=== PATIENT | female | born 1970 | race Caucasian/White ===

== ENCOUNTER → 2017-01-18 | Outpatient (CLI) | payer BC ==
[~2017-01-18] MED LIST: EFF50 PO
[2017-01-18 17:03] LABS: BASO % 0.3 %; BASO ABS # 0.02 K/uL (0-0.2); COMPLETE YES; EOS % 1.3 %; IG% 0.2 %; LYMPH % 21.2 %; LYMPH ABS # 1.31 K/uL (1.2-3.4); MEAN CELL VOLUME 86.2 fL (80-100); MEAN CORPUSCULAR HEMOGLOBIN 29.9 pg (25-34); MEAN CORPUSCULAR HGB CONC 34.7 g/dl (32-36); MEAN PLATELET VOLUME 9.8 fL (7.4-10.4); MONO % 8.6 %; NEUT % 68.4 %; PLATELET COUNT 225 K/uL (130-400); RED BLOOD COUNT 4.41 M/uL (4.2-5.4); WHITE BLOOD COUNT 6.18 K/uL (4.8-10.8)
[2017-01-18 17:14] LABS: ALT/SGPT 22 U/L (12-78); BLOOD UREA NITROGEN 11 mg/dl (7-18); BUN/CREATININE RATIO 13.1 (10-20); CALCIUM 8.8 mg/dl (8.5-10.1); CARBON DIOXIDE 23 mmol/L (21-32); CHLORIDE 107 mmol/L (98-107); CREATININE 0.83 mg/dl (0.60-1.20); GLUCOSE 96 mg/dl (70-99); MAGNESIUM 1.9 mg/dl (1.8-2.4); POTASSIUM 3.9 mmol/L (3.5-5.1); SODIUM 140 mmol/L (136-145)
[2017-01-18 17:24] LABS: ALB/GLOB RATIO 1.1 (0.9-2); ALKALINE PHOSPHATASE 49 U/L (45-117); AST/SGOT 20 U/L (15-37)
== END | disposition home or self-care (01) ==
LOC: C.LABBC 14:31
PROVIDERS: ATTEND Nurse Practitioner Family
DX: E55.9 Vitamin D deficiency, unspecified (principal); R53.83 Other fatigue

== ENCOUNTER → 2017-05-24 | Outpatient (CLI) | payer BC | END | disposition home or self-care (01) | LOC: C.LAB1850 10:27 | PROVIDERS: ATTEND Nurse Practitioner Family | DX: E55.9 Vitamin D deficiency, unspecified (principal); R53.83 Other fatigue; Z78.9 Other specified health status ==

== ENCOUNTER → 2017-08-24 | Outpatient (CLI) | payer BC | END | disposition home or self-care (01) | LOC: C.LAB1850 09:48 | PROVIDERS: ATTEND Obstetrics & Gynecology | DX: Z01.419 Encounter for gynecological examination (general) (routine) without abnormal findings (principal); R53.83 Other fatigue ==

== ENCOUNTER → 2017-08-24 | Outpatient (CLI) | payer BC | END | disposition home or self-care (01) | LOC: C.PAPS 13:52 | PROVIDERS: ATTEND Obstetrics & Gynecology | DX: Z01.419 Encounter for gynecological examination (general) (routine) without abnormal findings (principal); R53.83 Other fatigue ==

== ENCOUNTER → 2017-10-31 | Outpatient (CLI) | payer BC ==
[2017-10-31 19:17] LABS: BASO % 0.6 %; BASO ABS # 0.05 K/uL (0-0.2); COMPLETE YES; EOS % 1.7 %; HEMATOCRIT 39.9 % (37-47); IG% 0.4 %; LYMPH % 26.3 %; LYMPH ABS # 2.17 K/uL (1.2-3.4); MEAN CELL VOLUME 88.9 fL (80-100); MEAN CORPUSCULAR HEMOGLOBIN 30.3 pg (25-34); MEAN CORPUSCULAR HGB CONC 34.1 g/dl (32-36); MEAN PLATELET VOLUME 9.4 fL (7.4-10.4); MONO % 9.7 %; NEUT % 61.3 %; PLATELET COUNT 202 K/uL (130-400); RED BLOOD COUNT 4.49 M/uL (4.2-5.4); WHITE BLOOD COUNT 8.24 K/uL (4.8-10.8)
[2017-10-31 19:48] LABS: ALT/SGPT 23 U/L (12-78); AST/SGOT 17 U/L (15-37); BLOOD UREA NITROGEN 12 mg/dl (7-18); BUN/CREATININE RATIO 16.7 (10-20); CALCIUM 8.7 mg/dl (8.5-10.1); CARBON DIOXIDE 24 mmol/L (21-32); CHLORIDE 108 mmol/L (98-107); CREATININE 0.71 mg/dl (0.60-1.20); GLUCOSE 84 mg/dl (70-99); SODIUM 138 mmol/L (136-145)
[2017-10-31 19:59] LABS: ALKALINE PHOSPHATASE 43 U/L (45-117)
== END | disposition home or self-care (01) ==
LOC: C.LAB 18:57
PROVIDERS: ATTEND Nurse Practitioner Family
DX: E55.9 Vitamin D deficiency, unspecified (principal); R53.83 Other fatigue

== ENCOUNTER → 2017-12-29 | Outpatient (CLI) | payer BC ==
--- NOTE | 2017-12-29 15:00 | MAMMOGRAPHY REPORT ---
BILATERAL DIGITAL SCREENING MAMMOGRAM TOMOSYNTHESIS WITH CAD: 12/29/2017 CLINICAL HISTORY: Routine screening. The patient reported to the technologist a left breast lump. TECHNIQUE: Breast tomosynthesis in addition to standard 2D mammography was performed. Current study was also evaluated with a Computer Aided Detection (CAD) system. COMPARISON: Comparison is made to exams dated: 10/15/2012 ultrasound, 04/10/2012 mammogram, 08/30/2011 ultrasound, and 08/30/2011 mammogram - [facility]. BREAST COMPOSITION: The tissue of both breasts is heterogeneously dense, which may obscure small mas ses. FINDINGS: A triangle marker ramirez the site of the palpable lump in the left upper outer quadrant. T here are no suspicious masses, calcifications, or areas of architectural distortion noted in either b reast. There has been no significant interval change compared to prior exams. IMPRESSION: ACR BI-RADS CATEGORY 0: INCOMPLETE EVALUATION: NEED ADDITIONAL IMAGING EVALUATION No mammographic evidence of malignancy in either breast. However, the patient reported to the techno logist that she has a left breast lump. Therefore, recommend additional imaging evaluation with targ eted ultrasound in order to have a complete workup. The patient will be called to schedule an appointment. Approximately 10% of breast cancers are not detected with mammography. A negative mammographic report should not delay biopsy if a clinically suggestive mass is present. Angelia White M.D. ah/:12/29/2017 07:55:08 [employer] Solder Leveler: Sandrine PERDOMO)(M), [facility] letter sent: Addl Imaging 0 BI-RADS Code: ACR BI-RADS Category 0: Incomplete Evaluation: Need Additional Imaging Evaluation
== END | disposition home or self-care (01) ==
LOC: C.MAMM 07:34
PROVIDERS: ATTEND Obstetrics & Gynecology
DX: Z12.31 Encounter for screening mammogram for malignant neoplasm of breast (principal); R92.8 Other abnormal and inconclusive findings on diagnostic imaging of breast

== ENCOUNTER → 2017-12-29 | Outpatient (CLI) | payer BC ==
--- NOTE | 2017-12-29 16:17 | DIAGNOSTIC IMAGING REPORT ---
THYROID ULTRASOUND CLINICAL HISTORY: Fatigue. COMPARISON STUDY: Thyroid ultrasound June 17, 2015. TECHNIQUE: Sonography of the thyroid gland was performed. FINDINGS: The right thyroid lobe measures 4.7 x 1.6 x 1.5 cm and the left thyroid lobe measures 3 x 0.9 x 1.2 cm. No thyroid nodules are present. Isthmus measures 0.2 cm in thickness. The adjacent soft tissues are unremarkable. IMPRESSION: Unremarkable thyroid ultrasound. Electronically signed by: Benny Tovar M.D. 12/29/2017 4:15 PM Dictated Date/Time: 12/29/2017 4:14 PM
== END | disposition home or self-care (01) ==
LOC: C.ULTR 15:24
PROVIDERS: ATTEND Nurse Practitioner Family
DX: R53.83 Other fatigue (principal)

== ENCOUNTER → 2018-01-12 | Outpatient (CLI) | payer BC ==
--- NOTE | 2018-01-12 13:36 | MAMMOGRAPHY REPORT ---
ULTRASOUND OF LEFT BREAST: 01/12/2018 CLINICAL HISTORY: The patient reports a palpable lump in her left breast which fluctuates in size and has been present for months. She has some associated intermittent tenderness. No abnormality was s een on a recent screening mammogram. COMPARISON: Comparison is made to exams dated: 12/29/2017 mammogram, 10/15/2012 mammogram, 10/15/2012 u ltrasound, 04/10/2012 mammogram, and 08/30/2011 ultrasound - [facility]. TECHNIQUE: Real-time targeted ultrasound of the left breast was performed. FINDINGS: Real-time, high-resolution targeted ultrasound was performed of the area of the palpable lump pointed out by the patient, in the left breast at approximately 1:00, 3 cm from the nipple. At the site of the palpable lump there is sonographically normal tissue without evidence of a suspicious mass or oth er suspicious sonographic abnormality. Incidentally noted in the left 1:00 breast, approximately 5 c m from the nipple, is a morphologically normal intramammary lymph node which measures 7 x 3 x 6 mm, w hich does not appear significantly changed compared to the 2011 ultrasound exam. IMPRESSION: ACR BI-RADS CATEGORY 2: BENIGN No suspicious sonographic abnormality at the site of the palpable left breast lump pointed out by the patient. There is no sonographic evidence of malignancy. Recommend clinical follow-up for the palp able left breast lump, and recommend routine bilateral screening mammograms in one year. The patient was verbally notified of the results. Angelia White M.D. ah/:01/12/2018 11:34:11 Surgical Services Coordinator: Apple TRIPP(Erica)(Mark), [facility] letter sent: Normal /2 BI-RADS Code: ACR BI-RADS Category 2: Benign
== END | disposition home or self-care (01) ==
LOC: C.MAMM 11:10
PROVIDERS: ATTEND Obstetrics & Gynecology
DX: R92.8 Other abnormal and inconclusive findings on diagnostic imaging of breast (principal); N63.20 Unspecified lump in the left breast, unspecified quadrant

== ENCOUNTER → 2018-01-16 | Outpatient (CLI) | payer BC ==
[2018-01-19 16:33] LABS: MICROSOMAL AB 3 IU/ML (<9); TSI <89 % baseline (<140)
== END | disposition home or self-care (01) ==
LOC: C.LAB 15:30
PROVIDERS: ATTEND Nurse Practitioner Family
DX: E55.9 Vitamin D deficiency, unspecified (principal); R53.83 Other fatigue; K90.9 Intestinal malabsorption, unspecified

== ENCOUNTER → 2018-02-23 | Day surgery (SDC) | payer BC ==
[2018-02-13 13:36] VITALS: Ht 168.9 cm; Wt 74.5 kg
[~2018-02-23] VITALS: Ht 168.9 cm; Wt 74.5 kg
[~2018-02-23] MED LIST changes: +AMPH1TAB58 PO; -EFF50 PO; +ESCI10TA17 PO; +LIDOCAINE HCL 2% 2 ML VIAL (20MG/ML) ONE; +PROPOFOL IV EMULSION 10 MG/ML 20 ML VIAL IV ONE; +SODIUM CHLORIDE 0.9% 500ML 500 ML IV ONE; +ZOLP5TAB PO
--- NOTE | 2018-02-23 12:57 | Endo History and Physical ---
History & Physical Date of Service: Feb 23, 2018. Chief Complaint: BLOATING, MALABSORPTION, CHANGE IN BOWEL HABITS Referring Physician: AISHA JACOBO History of Present Illness 47 yo CF who presents for EGD and Colonoscopy secondary to bloating, malabsorption, and change in bowel habits. Past Surgical History Hx Cardiac Surgery: No Hx Internal Defibrillator: No Hx Pacemaker: No Hx Abdominal Surgery: No Hx of Implantable Prosthesis: No Hx Post-Op Nausea and Vomiting: No Hx Cancer Surgery: No Hx Thoracic Surgery: No Hx Orthopedic: No Hx Urinary Tract Surgery: No Family History None Social History Smoking Status: Never Smoker Hx Substance Use: No Hx Alcohol Use: Yes (OCCASIONALLY) Allergies Coded Allergies: Pseudoephedrine (Unverified Allergy, Mild, PASSED OUT , 02/23/18) Current Medications Reported Home Medications Medications Dose Route/Sig Max Daily Dose Days Date Category Adderall 5MG (Amphetamine-Dextroamphetamine 5MG) 1 Tab Tab 5 Mg PO DAILY PRN 02/16/18 Reported Ambien (Zolpidem Tartrate) 5 Mg Tab 5 Mg PO HS 02/13/18 Reported Lexapro (Escitalopram Oxalate) 10 Mg Tab 10 Mg PO HS 02/13/18 Reported Vital Signs Weight (Kilograms): 74.55 Height (Feet): 5 Height (Inches): 6.5 Physical Exam General Appearance: WD/WN, no apparent distress Respiratory/Chest: Auscultation: breath sounds normal Cardiovascular: Heart Auscultation: RRR Abdomen: Bowel Sounds: normal Inspection & Palpation: soft, non-distended, no tenderness, guarding & rebound Assessment and Plan Assessment: 47 yo CF who presents for EGD and Colonoscopy secondary to bloating, malabsorption, and change in bowel habits. Plan: Proceed with EGD and colonoscopy.
--- NOTE | 2018-02-23 13:59 | Discharge Instructions ---
Endoscopy Patient Instructions Date / Procedure(s) Performed Feb 23, 2018. Colonoscopy, EGD Allergy Information Coded Allergies: Pseudoephedrine (Unverified Allergy, Mild, PASSED OUT , 02/23/18) Discharge Date / Findings Feb 23, 2018. EGD: Gastric antrum biopsies, Duodenal biopsies Colonoscopy: Colon polyp, Random colon biopsies, Internal hemorrhoids Medication Instructions OK to resume all medications today as prescribed Reported Home Medications Medications Dose Route/Sig Max Daily Dose Days Date Category Adderall 5MG (Amphetamine-Dextroamphetamine 5MG) 1 Tab Tab 5 Mg PO DAILY PRN 02/16/18 Reported Ambien (Zolpidem Tartrate) 5 Mg Tab 5 Mg PO HS 02/13/18 Reported Lexapro (Escitalopram Oxalate) 10 Mg Tab 10 Mg PO HS 02/13/18 Reported Provider Instructions Activity Restrictions - No exercising or heavy lifting for 24 hours. - Do not drink alcohol the day of the procedure. - Do not drive a car or operate machinery until the day after the procedure. - Do not make any important decisions or sign important papers in 24 hours after the procedure. Following Day: - Return to full activity which may include returning to work/school. Diet Start your diet with liquids and light foods (jello, soup, juice, toast). Then eat your usual diet if not nauseated. Treatment For Common After Affects For mild abdominal pain, bloating, or excessive gas: - Rest - Eat lightly - Lie on right side Follow-Up Information Follow-up with AISHA JACOBO as scheduled Anesthesia Information What You Should Know You have had a procedure that required some medicine to reduce anxiety and discomfort. This treatment is called moderate sedation. After receiving the treatment, you may be sleepy, but you will be able to breathe on your own. The effects of the treatment may last for several hours. Follow these instructions along with Activity/Diet recommendations noted above: * Do NOT do anything where dizziness or clumsiness would be dangerous. * Rest quietly at home today, then you can be up and about tomorrow. * Have a responsible person stay with you the rest of today. * You may have had an I.V. today. If so, you may take the dressing off later today. Recommendations Call your doctor if: * Trouble breathing * Continuous vomiting for more than 24 hours * Temperature above 101 degrees * Severe abdominal pain or bloating * Pain not relieved by pain medicine ordered * There is increased drainage or redness from any incision * A large amount of rectal bleeding greater than 2-3 tablespoons. (If you had a polyp/s removed or have hemorrhoids, a small amount of blood - from the rectum is to be expected.) * You have any unanswered questions or concerns. IN THE EVENT OF A SERIOUS EMERGENCY, GO TO THE NEAREST EMERGENCY ROOM Your discharge instructions were prepared by provider Jamison Lewis. Patient Instructions Signature Page Caren Guerrero Patient (or Guardian) Signature/Date: I have read and understand the instructions given to me by my caregivers. Caregiver/RN/Doctor Signature/Date: The above-named patient and/or guardian has received patient instructions on this date. + Original Patient Signature Page (only) stays with chart. Please make copy for patient.
--- NOTE | 2018-02-23 14:13 | GI REPORT ---
Procedure Date: 02/23/2018 1:31 PM Procedure: Colonoscopy Indications: Change in bowel habits Medicines: Monitored Anesthesia Care Complications: No immediate complications. Estimated Blood Loss: Estimated blood loss: none. Procedure: Pre-Anesthesia Assessment: - Prior to the procedure, a History and Physical was performed, and patient medications and allergies were reviewed. The patient's tolerance of previous anesthesia was also reviewed. The risks and benefits of the procedure and the sedation options and risks were discussed with the patient. All questions were answered, and informed consent was obtained. Prior Anticoagulants: The patient has taken no previous anticoagulant or antiplatelet agents. ASA Grade Assessment: II - A patient with mild systemic disease. After reviewing the risks and benefits, the patient was deemed in satisfactory condition to undergo the procedure. After I obtained informed consent, the scope was passed under direct vision. Throughout the procedure, the patient's blood pressure, pulse, and oxygen saturations were monitored continuously. The scope was introduced through the anus and advanced to the terminal ileum. The colonoscopy was performed without difficulty. The patient tolerated the procedure well. The quality of the bowel preparation was good. The terminal ileum, ileocecal valve, appendiceal orifice, and rectum were photographed. Findings: The perianal and digital rectal examinations were normal. A 4 mm polyp was found in the sigmoid colon. The polyp was sessile. The polyp was removed with a cold snare. Resection and retrieval were complete. Non-bleeding internal hemorrhoids were found during retroflexion. The hemorrhoids were small. Several random biopsies were obtained with cold forceps for histology in the entire colon. Impression: - One 4 mm polyp in the sigmoid colon, removed with a cold snare. Resected and retrieved. - Non-bleeding internal hemorrhoids. - Several random biopsies were obtained in the entire colon. Recommendation: - Resume previous diet. - Continue present medications. - Repeat colonoscopy for surveillance based on pathology results. - Return to primary care physician as previously scheduled. Jamison Lewis, DO 02/23/2018 2:13:24 PM This report has been signed electronically. Note Initiated On: 02/23/2018 1:31 PM I attest to the content of the Intraoperative Record and orders documented therein, exceptions below
--- NOTE | 2018-02-23 14:14 | GI REPORT ---
Procedure Date: 02/23/2018 1:00 PM Procedure: Upper GI endoscopy Indications: Abdominal bloating Medicines: Monitored Anesthesia Care Complications: No immediate complications. Estimated Blood Loss: Estimated blood loss: none. Procedure: Pre-Anesthesia Assessment: - Prior to the procedure, a History and Physical was performed, and patient medications and allergies were reviewed. The patient's tolerance of previous anesthesia was also reviewed. The risks and benefits of the procedure and the sedation options and risks were discussed with the patient. All questions were answered, and informed consent was obtained. Prior Anticoagulants: The patient has taken no previous anticoagulant or antiplatelet agents. ASA Grade Assessment: II - A patient with mild systemic disease. After reviewing the risks and benefits, the patient was deemed in satisfactory condition to undergo the procedure. After obtaining informed consent, the endoscope was passed under direct vision. Throughout the procedure, the patient's blood pressure, pulse, and oxygen saturations were monitored continuously. The scope was introduced through the mouth, and advanced to the second part of duodenum. The upper GI endoscopy was accomplished without difficulty. The patient tolerated the procedure well. Findings: The esophagus was normal. The entire examined stomach was normal. Biopsies were taken with a cold forceps for Helicobacter pylori testing. The examined duodenum was normal. Biopsies for histology were taken with a cold forceps for evaluation of celiac disease. Impression: - Normal esophagus. - Normal stomach. Biopsied. - Normal examined duodenum. Biopsied. Recommendation: - Resume previous diet. - Continue present medications. - Await pathology results. - Return to primary care physician as previously scheduled. Jamison Lewis DO 02/23/2018 2:13:47 PM This report has been signed electronically. Note Initiated On: 02/23/2018 1:00 PM I attest to the content of the Intraoperative Record and orders documented therein, exceptions below
[2018-02-23 14:54] VITALS: BP 118/75; PULSE 50; O2SAT 100
--- NOTE | 2018-02-23 15:10 | Anesthesiology Progress Note ---
Anesthesia Post Op Note Date & Time Feb 23, 2018 at 15:10 Vital Signs Pain Intensity: 0 Vital Signs Past 12 Hours Date Time Temp Pulse Resp B/P (MAP) Pulse Ox O2 Delivery O2 Flow Rate FiO2 02/23/18 14:54 50 20 118/75 (89) 100 Room Air 02/23/18 14:21 57 20 109/65 (80) 100 Room Air 02/23/18 14:06 59 20 85/53 (64) 100 Room Air 02/23/18 13:51 67 16 103/67 (79) 95 Room Air 02/23/18 13:01 36.7 53 18 103/58 (73) 100 Room Air Notes Mental Status: alert / awake / arousable, participated in evaluation Pt Amnestic to Procedure: Yes Nausea / Vomiting: adequately controlled Pain: adequately controlled Airway Patency, RR, SpO2: stable & adequate BP & HR: stable & adequate Hydration State: stable & adequate Anesthetic Complications: no major complications apparent
== END | disposition home or self-care (01) ==
LOC: C.GI 11:08
PROVIDERS: ATTEND Internal Medicine
DX: R19.4 Change in bowel habit (principal); R14.0 Abdominal distension (gaseous); K90.9 Intestinal malabsorption, unspecified; K29.50 Unspecified chronic gastritis without bleeding; D12.5 Benign neoplasm of sigmoid colon; K64.8 Other hemorrhoids; K21.9 Gastro-esophageal reflux disease without esophagitis

== ENCOUNTER → 2018-03-28 | Outpatient (CLI) | payer BC ==
[~2018-03-28] MED LIST changes: -LIDOCAINE HCL 2% 2 ML VIAL (20MG/ML) ONE; -PROPOFOL IV EMULSION 10 MG/ML 20 ML VIAL IV ONE; -SODIUM CHLORIDE 0.9% 500ML 500 ML IV ONE
== END | disposition home or self-care (01) ==
LOC: C.LAB 13:17
PROVIDERS: ATTEND Nurse Practitioner Family
DX: E55.9 Vitamin D deficiency, unspecified (principal); R53.83 Other fatigue

== ENCOUNTER 2022-12-14 15:54 | Inpatient (IN) ==
[2022-12-14] MEDS ORDERED: OPTIRAY 320 500ml IV ONE (16:16)
--- NOTE | 2022-12-14 16:27 | Emergency Department Note ---
Impression & Plan TIA (transient ischemic attack), Elevated troponin I level ED Provider Note NAME: GUERO FORTE AGE: 52 SEX: F : 1970 ARRIVES VIA: Walk-In INFORMANT: Patient, ED PROVIDER(S): Avery Arenas DO CHIEF COMPLAINT: Strokelike symptoms HPI: The patient is a 52-year-old female who presented to the emergency department for an evaluation of strokelike symptoms. The patient has no stroke history. She has no history of diabetes or hypertension. She was at work today when she was having a conversation with her boss. She states that she felt off and that she could not form words. Her boss states that at the same time she had a right-sided facial droop. She states that these symptoms lasted approximately 3 minutes. She states that she feels much better now but still has some subjective tingling on the right side of her face and her left hand. 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 She has never had any similar symptoms in the past. She denies having any headache nausea or vomiting. She came directly to the emergency department but presented through triage. ROS: See above HPI for pertinent positives & negatives. A total of 10 systems reviewed and were otherwise negative. PAST MEDICAL HISTORY: See Below PAST SURGICAL HISTORY: See Below FAMILY HISTORY: See Below SOCIAL HISTORY: See Below HOME MEDICATIONS: See Below ALLERGIES: See Below VITALS: See Below PHYSICAL EXAMINATION: GENERAL: Patient is awake alert in no acute distress patient is resting comfortably and showing no signs of anxiety EYES: The conjunctivae are clear. The pupils are round and reactive. EARS, NOSE, MOUTH AND THROAT: The nose is without any evidence of any deformity. NECK: The neck is nontender and supple. RESPIRATORY: Normal respiratory effort is noted there is no evidence of wheezing rhonchi or rales CARDIOVASCULAR: Regular rate and rhythm noted there no murmurs rubs or gallops normal S1 normal S2. GASTROINTESTINAL: The abdomen is soft. Abdomen is nontender. MUSCULOSKELETAL/EXTREMITIES: There is no evidence of gross deformity full range of motion is noted in the hips and shoulders. SKIN: There is no obvious evidence of any rash. There are no petechiae, pallor or cyanosis noted. NEUROLOGIC: Patient is awake alert and oriented x3 strength is symmetric patellar reflexes are 2+ bilaterally. There is no facial droop. There is no drift in the upper extremities. MEDICAL DECISION MAKING: The patient is a 52-year-old female who presented to the emergency department for strokelike symptoms. The patient had an acute onset of facial droop facial numbness and contralateral arm numbness. Upon arrival the patient was made a stroke alert through triage. She was taken directly to CT. I was notified about the patient and placed orders for at the stroke order set. The patient was evaluated in CT by myself. She was also evaluated in the ED room. The patient was reevaluated multiple times. On my initial evaluation the patient symptoms had almost completely resolved but she still had an NIH stroke score of 1 because of her numbness. I discussed the patient's condition with the telestroke neurologist from [facility]. The patient did not appear to have any signs of large vessel occlusion. Plain CT showed no acute disease. She was not felt to be a candidate for thrombolytics given her neurologic findings. She was able to ambulate without difficulty. She also was found to have an elevation in her troponin. I do not know the cause of this. She has no chest pain or shortness of breath. She is not tachycardic or hypoxic. The patient was treated with aspirin in the emergency department. I discussed her condition with the on-call [facility] hospitalist group. They have agreed to evaluate the patient in the emergency department for further management and disposition. Triage Nursing notes reviewed. Prior medical records reviewed Vital Signs: reviewed and remarkable for no significant abnormalities Differential diagnosis: Infection, dehydration, metabolic abnormality, hypo/hyperglycemia, electrolyte disturbance, anemia, hypoxia, cardiac sources, intracerebral event, toxicologic, neurologic, as well as other pathologies. ER treatment provided: See below Diagnostics interpreted by me: ECG: EKG was obtained in the emergency department. My interpretation is normal sinus rhythm at 75 bpm. Low voltage was noted throughout. There is no acute ST segment abnormalities noted. There is no ectopy. this was compared to a tracing from December 31, 2007. Low voltage is new compared to previous tracing. Cardiac Monitoring: An order was placed for continuous cardiac monitoring. The monitor shows a rate of 76 bpm with sinus rhythm. Laboratory studies: As stated above and show below. Imaging studies: See below. Radiographic imaging was reviewed by myself Consultation(s): I discussed this case with Dr. Sharma who is on-call for [facility] telestroke. I discussed this case with Vik[facility] COURSE: Critical Care: I have personally spent greater than 45 minutes of critical care time in the direct management of this patient. This includes bedside care, interpretation of diagnostic studies, and testing, discussion with consultants, patient, and family members, and other required patient management activities. This 45 minutes is in excess of all separately billable procedures. Past Med/Surg History Medical History Anxiety Cervical high risk HPV (human papillomavirus) test positive Dysfunctional uterine bleeding Female infertility History of syncope HX OF EPISODES OF SYNCOPE, LAST EPISODE 8 MONTHS AGO. PT STATES IT HAS OCCURED WITH "NO KNOWN TRIGGER". PT IS A RUNNER AND HR TENDS TO BE LOW 38. PT STATES THAT NO FURTHER WORK UP WAS DONE. Menopausal and perimenopausal disorder Menorrhagia Mononucleosis Oral contraceptive pill surveillance Sleep apnea Uterine leiomyoma Vitamin D deficiency Surgical History H/O colonoscopy 2018, change in habits, sigmoid polyp. H/O hand surgery H/O LEEP in the . History of appendectomy History of esophagogastroduodenoscopy (EGD) 2018 History of myomectomy Family History Father Myocardial infarction Prostate cancer Lung cancer Congestive heart failure (CHF) Mother Leukemia Hypertension Denies family history of Ovarian cancer Breast cancer Colorectal cancer Social History Smoking Status: Never smoker Second Hand Exposure: No; Do You Dip or Chew Tobacco: No; Tobacco Cessation Education Requested by Patient: No Hx Alcohol Use: No Hx Substance Use: No Preferred Language: Maltese Communication Ability: Effective Visual Impairment: No Limitations Hearing Ability: Normal Water Pump Installer Required: No Beliefs That Will Affect Care: None marital status: Current Living Situation: Spouse current occupational status: employed current occupation: sales Other Information That Helps Us Care for You: No Feels Safe at Home: Yes Safety Concerns: Feels Safe At This Time Childhood Exposure to Second-Hand Smoke: No Dental Care, Regularly: Yes Physical Activity Frequency: Does not Exercise Seatbelt Use: always Sunscreen Use: No Assistive Devices: None Allergies Allergies Allergy/AdvReac Type Severity Reaction Status Date / Time pseudoephedrine Allergy Mild PASSED OUT Verified 04/01/22 08:06 chlorhexidine Allergy Verified 04/01/22 08:06 Home Meds Home Medications Medication Instructions Recorded Confirmed norethindrone acetate 1 mg-ethinyl 1 tab PO DAILY 04/01/22 12/14/22 estradiol 20 mcg tablet (Junel) albuterol sulfate 90 mcg/actuation 2 puff inhalation Q4 PRN shortness 12/14/22 12/14/22 aerosol inhaler (ProAir HFA) of breath or wheezing cyanocobalamin (vitamin B-12) 1,000 mcg IM Q28D 12/14/22 12/14/22 1,000 mcg/mL injection solution Previous Rx's Medication Instructions Recorded inhalational spacing device #1 ea 01/29/20 (OptiChamShelfFlip Annabel VHC spacer) Results & Data (ED) Vital Signs Vital Signs - 24 hr 12/14/22 15:57 12/14/22 16:38 12/14/22 16:45 Pulse Rate 65 71 Pulse Rate [Right Finger] Pulse Rate from SpO2 Sensor 65 67 Respiratory Rate 23 30 H Blood Pressure 115/68 117/80 Blood Pressure Mean 83 92 Pulse Oximetry 100 99 Oxygen Delivery Method Room Air Room Air Sepsis Recent Fever Within 48 Hours No Sepsis New/Unexplained Change in Mental Status No Sepsis Action Taken by Nursing No Action Required 12/14/22 17:00 12/14/22 17:21 12/14/22 17:30 Pulse Rate 68 68 65 Pulse Rate [Right Finger] Pulse Rate from SpO2 Sensor 67 70 65 Respiratory Rate 17 25 H 20 Blood Pressure 120/72 110/86 116/77 Blood Pressure Mean 88 94 90 Pulse Oximetry 99 99 97 Oxygen Delivery Method Room Air Room Air Room Air Sepsis Recent Fever Within 48 Hours Sepsis New/Unexplained Change in Mental Status Sepsis Action Taken by Nursing 12/14/22 18:00 12/14/22 18:50 Pulse Rate 68 Pulse Rate [Right Finger] 78 Pulse Rate from SpO2 Sensor 69 Respiratory Rate 21 Blood Pressure 126/70 Blood Pressure Mean 88 Pulse Oximetry 98 98 Oxygen Delivery Method Room Air Room Air Sepsis Recent Fever Within 48 Hours Sepsis New/Unexplained Change in Mental Status Sepsis Action Taken by Residential Medications Current Medication List: was personally reviewed by ca Laboratory Data Attestation: I reviewed the patient's lab results. 12/14/22 16:30 12/14/22 16:30 Lab Results 12/14/22 12/14/22 12/14/22 Range/Units 16:28 16:30 16:30 WBC 6.21 (4.8-10.8) K/ul RBC 4.28 (4.20-5.40) M/uL Hgb 12.9 (12.0-16.0) g/dl Hct 37.6 (37.0-47.0) % MCV 87.9 (80.0-100.0) fL MCH 30.1 (25.0-34.0) pg MCHC 34.3 (32.0-36.0) g/dL RDW Std Deviation 41.0 (36.4-46.3) fL RDW Coeff of Isreal 12.7 (11.5-14.5) % Plt Count 209 (130-400) K/uL MPV 10.7 (9.4-12.4) fL Immature Gran % (Auto) 0.2 % Neut % (Auto) 62.1 % Lymph % (Auto) 25.9 % [place] % (Auto) 8.5 % Eos % (Auto) 2.3 % Baso % (Auto) 1.0 % Neut # (Auto) 3.86 (1.40-6.50) K/uL Lymph # (Auto) 1.61 (1.2-3.4) K/uL [place] # (Auto) 0.53 (0.11-0.59) K/uL Eos # (Auto) 0.14 (0-0.50) K/uL Baso # (Auto) 0.06 (0-0.2) K/uL Immature Gran # (Auto) 0.01 (0.01-0.20) K/uL PT 10.3 (9.0-12.0) Seconds INR 1.0 (0.9-1.1) APTT 21.9 (21.0-31.0) Seconds PTT Ratio 0.8 Sodium (136-145) mmol/L Potassium (3.5-5.1) mmol/L Chloride (98-107) mmol/L Carbon Dioxide (21-32) mmol/L Anion Gap (3-11) BUN (6-23) mg/dl Creatinine (0.6-1.2) mg/dl Est Cr Clr Drug Dosing ml/min Est GFR ( Amer) ml/min Est GFR (Non-Af Amer) ml/min BUN/Creatinine Ratio (10-20) Glucose (70-99(Fasting)) mg/dl POC Glucose 86 (70-99) mg/dl Calcium (8.5-10.1) mg/dl Magnesium (1.7-2.4) mg/dl Total Bilirubin (0.2-1.0) mg/dl AST (13-39) U/L ALT (7-52) U/L Alkaline Phosphatase (34-104) U/L Troponin I High Sens (0-14) pg/ml Total Protein (6.0-8.3) gm/dl Albumin (3.4-5.0) gm/dl Globulin (2.5-4.0) gm/dl Albumin/Globulin Ratio (0.9-2) Procalcitonin (0-0.5) ng/ml HCG, Qual (Negative) 12/14/22 12/14/22 12/14/22 Range/Units 16:30 16:30 16:30 WBC (4.8-10.8) K/ul RBC (4.20-5.40) M/uL Hgb (12.0-16.0) g/dl Hct (37.0-47.0) % MCV (80.0-100.0) fL MCH (25.0-34.0) pg MCHC (32.0-36.0) g/dL RDW Std Deviation (36.4-46.3) fL RDW Coeff of Isreal (11.5-14.5) % Plt Count (130-400) K/uL MPV (9.4-12.4) fL Immature Gran % (Auto) % Neut % (Auto) % Lymph % (Auto) % [place] % (Auto) % Eos % (Auto) % Baso % (Auto) % Neut # (Auto) (1.40-6.50) K/uL Lymph # (Auto) (1.2-3.4) K/uL [place] # (Auto) (0.11-0.59) K/uL Eos # (Auto) (0-0.50) K/uL Baso # (Auto) (0-0.2) K/uL Immature Gran # (Auto) (0.01-0.20) K/uL PT (9.0-12.0) Seconds INR (0.9-1.1) APTT (21.0-31.0) Seconds PTT Ratio Sodium 133 L (136-145) mmol/L Potassium 4.1 (3.5-5.1) mmol/L Chloride 104 (98-107) mmol/L Carbon Dioxide 21 (21-32) mmol/L Anion Gap 8 (3-11) BUN 12 (6-23) mg/dl Creatinine 0.83 (0.6-1.2) mg/dl Est Cr Clr Drug Dosing 87.4 ml/min Est GFR ( Amer) 94.6 ml/min Est GFR (Non-Af Amer) 81.6 ml/min BUN/Creatinine Ratio 14.5 (10-20) Glucose 76 (70-99(Fasting)) mg/dl POC Glucose (70-99) mg/dl Calcium 9.2 (8.5-10.1) mg/dl Magnesium 2.0 (1.7-2.4) mg/dl Total Bilirubin 0.5 (0.2-1.0) mg/dl AST 23 (13-39) U/L ALT 17 (7-52) U/L Alkaline Phosphatase 40 (34-104) U/L Troponin I High Sens 164.0 H* (0-14) pg/ml Total Protein 6.9 (6.0-8.3) gm/dl Albumin 4.0 (3.4-5.0) gm/dl Globulin 2.9 (2.5-4.0) gm/dl Albumin/Globulin Ratio 1.4 (0.9-2) Procalcitonin < 0.05 (0-0.5) ng/ml HCG, Qual Negative (Negative) Administered Medications Miscellaneous (12/02 (21) - Order Awaiting Action) 1 each N/A QS AMARJIT Stop: 01/14/23 00:00 Last Admin: 12/14/22 23:24 Dose: Not Given Documented By: ANA Discontinued Medications Aspirin (Aspirin Chew 324 Mg) 324 mg PO NOW STA Stop: 12/14/22 17:42 Last Admin: 12/14/22 20:50 Dose: 324 mg Documented By: CURTIS Aspirin (Aspirin Chew 324 Mg) Confirm Administered Dose 324 mg .ROUTE .STK-MED ONE Stop: 12/14/22 20:50 Last Admin: 12/14/22 20:51 Dose: Not Given Documented By: CURTIS Gadobutrol (Gadobutrol 65ml Vial) 7.5 ml IV ONCE ONE Stop: 12/14/22 22:52 Last Admin: 12/14/22 22:52 Dose: 7.5 ml Documented By: MARY Sodium Chloride (Nss 1000ml) 1,000 mls @ 100 mls/hr IV .Q10H ONE Stop: 12/15/22 07:59 Last Infusion: 12/15/22 08:57 Dose: 0 mls/hr Documented By: Admin: 12/14/22 23:19 Dose: 100 mls/hr Documented By: ANA Ioversol (Optiray 320 500ml) 116 ml IV ONCE ONE Stop: 12/14/22 16:17 Last Admin: 12/14/22 16:22 Dose: 116 ml Documented By: DENEEN Imaging Data Radiologist's Impression: Chest X-Ray 12/14/22 16:07 XR chest 1V portable HISTORY: neuro deficit, acute stroke suspected COMPARISON: Chest 09/15/2017. FINDINGS: The lungs are clear. Cardiac silhouette is normal in size. No pleural effusions. No pneumothorax. IMPRESSION: No acute process. ACT 112: Negative or not required by law. Electronically signed by: Raheem Mercado M.D. 12/14/2022 4:[address] 12/14/22 16:[address] DOSE: 773.57 mGy.cm HISTORY: neuro deficit, acute stroke suspected TECHNIQUE: Multiaxial CT images of the head were performed without the use of intravenous contrast. Automated exposure control was utilized for this study. A dose lowering technique was utilized adhering to the principles of ALARA. Comparison: None. Findings: The paranasal sinuses and mastoid air cells are clear. The calvarium and skull base are intact. The ventricles and sulci are within normal limits. There is no mass, hematoma, midline shift, or acute infarct. Impression: No acute intracranial abnormality. ACT 112: Negative or not required by law. Electronically signed by: Raheme Mercado M.D. 12/14/2022 4:29 PM Head CTA 12/14/22 16:07 HEAD & NECK CTA HISTORY: neuro deficit, acute stroke suspected TECHNIQUE: Multiaxial CT images of the head were performed following the intravenous administration of contrast to evaluate the major cerebral vessels. Multiaxial CT images of the neck were also performed following the intravenous administration of contrast to evaluate the major cervical vessels. Maximum intensity projection images were also obtained. A dose lowering technique was utilized adhering to the principles of ALARA. COMPARISON: Head CT 12/14/2022. Head and neck MRA 06/17/2015. FINDINGS: There is no mass, hematoma, midline shift, or acute infarct. Visualized intracranial internal carotid arteries, distal vertebral arteries, and basilar artery are widely patent. There is no significant stenosis, occlusion, or aneurysm seen within the bilateral ACAs, MCAs, or family practice physician assistant. Hypoplastic distal vert ebral arteries, basilar arteries, and bilateral P1 segments. The bilateral family practice physician assistant are primarily fed through the posterior communicating arteries. The major dural venous sinuses are patent. The aortic arch and proximal great vessels are widely patent. There is no significant stenosis, occlusion, or dissection identified within the bilateral common carotid, internal carotid, or vertebral arteries. A small area of patchy groundglass airspace opacities within the right upper lobe anteriorly. This may represent a low-grade pneumonitis. IMPRESSION: 1. No significant stenosis, occlusion, or aneurysm within the [place]. 2. No significant stenosis, occlusion, or dissection identified within the carotid or vertebral arteries. 3. A small area of patchy groundglass airspace opacities within the right upper lobe anteriorly. This may represent a low-grade pneumonitis. ACT 112: Negative or not required by law. Electronically signed by: Raheem Mercado M.D. 12/14/2022 4:35 PM Neck CTA 12/14/22 16:07 HEAD & NECK CTA HISTORY: neuro deficit, acute stroke suspected TECHNIQUE: Multiaxial CT images of the head were performed following the intravenous administration of contrast to evaluate the major cerebral vessels. Multiaxial CT images of the neck were also performed following the intravenous administration of contrast to evaluate the major cervical vessels. Maximum intensity projection images were also obtained. A dose lowering technique was utilized adhering to the principles of ALARA. COMPARISON: Head CT 12/14/2022. Head and neck MRA 06/17/2015. FINDINGS: There is no mass, hematoma, midline shift, or acute infarct. Visualized intracranial internal carotid arteries, distal vertebral arteries, and basilar artery are widely patent. There is no significant stenosis, occlusion, or aneurysm seen within the bilateral ACAs, MCAs, or family practice physician assistant. Hypoplastic distal vertebral arteries, basilar arteries, and bilateral P1 segments. The bilateral family practice physician assistant are primarily fed through the posterior communicating arteries. The major dural venous sinuses are patent. The aortic arch and proximal great vessels are widely patent. There is no significant stenosis, occlusion, or dissection identified within the bilateral common carotid, internal carotid, or vertebral arteries. A small area of patchy groundglass airspace opacities within the right upper lobe anteriorly. This may represent a low-grade pneumonitis. IMPRESSION: 1. No significant stenosis, occlusion, or aneurysm within the [place]. 2. No significant stenosis, occlusion, or dissection identified within the carotid or vertebral arteries. 3. A small area of patchy groundglass airspace opacities within the right upper lobe anteriorly. This may represent a low-grade pneumonitis. ACT 112: Negative or not required by law. Electronically signed by: Raheem Mercado M.D. 12/14/2022 4:35 PM Discharge Plan Visit Data Chief Complaint: TIA Symptoms Stated Complaint: DROOPY FACE, STUDDERING ED Provider: Avery Arenas Discharge Problem: TIA (transient ischemic attack), Elevated troponin I level Patient Disposition: Admitted As Inpatient Discharge Instructions Interventions: ED Discharge Assessment Last Done: 12/14/22 21:02
--- NOTE | 2022-12-14 16:32 | CT Scan Report ---
HEAD CT NONCONTRAST CT DOSE: 773.57 mGy.cm HISTORY: neuro deficit, acute stroke suspected TECHNIQUE: Multiaxial CT images of the head were performed without the use of intravenous contrast. A utomated exposure control was utilized for this study. A dose lowering technique was utilized adheri ng to the principles of ALARA. Comparison: None. Findings: The paranasal sinuses and mastoid air cells are clear. The calvarium and skull base are int act. The ventricles and sulci are within normal limits. There is no mass, hematoma, midline shift, or acute infarct. Impression: No acute intracranial abnormality. ACT 112: Negative or not required by law. Electronically signed by: Raheem Mercado M.D. 12/14/2022 4:29 PM
--- NOTE | 2022-12-14 16:38 | CT Scan Report ---
HEAD & NECK CTA HISTORY: neuro deficit, acute stroke suspected TECHNIQUE: Multiaxial CT images of the head were performed following the intravenous administration o f contrast to evaluate the major cerebral vessels. Multiaxial CT images of the neck were also perform ed following the intravenous administration of contrast to evaluate the major cervical vessels. Maxim um intensity projection images were also obtained. A dose lowering technique was utilized adhering to the principles of ALARA. COMPARISON: Head CT 12/14/2022. Head and neck MRA 06/17/2015. FINDINGS: There is no mass, hematoma, midline shift, or acute infarct. Visualized intracranial internal carotid arteries, distal vertebral arteries, and basilar artery are widely patent. There is no significant s tenosis, occlusion, or aneurysm seen within the bilateral ACAs, MCAs, or electronic integrated systems mechanic. Hypoplastic distal sabina tebral arteries, basilar arteries, and bilateral P1 segments. The bilateral electronic integrated systems mechanic are primarily fed th rough the posterior communicating arteries. The major dural venous sinuses are patent. The aortic arch and proximal great vessels are widely patent. There is no significant stenosis, occ lusion, or dissection identified within the bilateral common carotid, internal carotid, or vertebral arteries. A small area of patchy groundglass airspace opacities within the right upper lobe anteriorl y. This may represent a low-grade pneumonitis. IMPRESSION: 1. No significant stenosis, occlusion, or aneurysm within the [place]. 2. No significant stenosis, occlusion, or dissection identified within the carotid or vertebral arter ies. 3. A small area of patchy groundglass airspace opacities within the right upper lobe anteriorly. This may represent a low-grade pneumonitis. ACT 112: Negative or not required by law. Electronically signed by: Raheem Mercado M.D. 12/14/2022 4:35 PM
--- NOTE | 2022-12-14 16:38 | CT Scan Report ---
HEAD & NECK CTA HISTORY: neuro deficit, acute stroke suspected TECHNIQUE: Multiaxial CT images of the head were performed following the intravenous administration o f contrast to evaluate the major cerebral vessels. Multiaxial CT images of the neck were also perform ed following the intravenous administration of contrast to evaluate the major cervical vessels. Maxim um intensity projection images were also obtained. A dose lowering technique was utilized adhering to the principles of ALARA. COMPARISON: Head CT 12/14/2022. Head and neck MRA 06/17/2015. FINDINGS: There is no mass, hematoma, midline shift, or acute infarct. Visualized intracranial internal carotid arteries, distal vertebral arteries, and basilar artery are widely patent. There is no significant s tenosis, occlusion, or aneurysm seen within the bilateral ACAs, MCAs, or spot washer. Hypoplastic distal sabina tebral arteries, basilar arteries, and bilateral P1 segments. The bilateral spot washer are primarily fed th rough the posterior communicating arteries. The major dural venous sinuses are patent. The aortic arch and proximal great vessels are widely patent. There is no significant stenosis, occ lusion, or dissection identified within the bilateral common carotid, internal carotid, or vertebral arteries. A small area of patchy groundglass airspace opacities within the right upper lobe anteriorl y. This may represent a low-grade pneumonitis. IMPRESSION: 1. No significant stenosis, occlusion, or aneurysm within the [place]. 2. No significant stenosis, occlusion, or dissection identified within the carotid or vertebral arter ies. 3. A small area of patchy groundglass airspace opacities within the right upper lobe anteriorly. This may represent a low-grade pneumonitis. ACT 112: Negative or not required by law. Electronically signed by: Raheem Mercado M.D. 12/14/2022 4:35 PM
--- NOTE | 2022-12-14 16:45 | XRay Report ---
XR chest 1V portable HISTORY: neuro deficit, acute stroke suspected COMPARISON: Chest 09/15/2017. FINDINGS: The lungs are clear. Cardiac silhouette is normal in size. No pleural effusions. No pneumot horax. IMPRESSION: No acute process. ACT 112: Negative or not required by law. Electronically signed by: Raheem Mercado M.D. 12/14/2022 4:44 PM
[2022-12-14 17:14] LABS: Albumin Globulin Ratio 1.4 (0.9-2); BUN Creatinine Ratio 14.5 (10-20); Bilirubin,Total 0.5 mg/dl (0.2-1.0); Calcium 9.2 mg/dl (8.5-10.1); Creatinine Clr Calc Pharmacy 87.4 ml/min; Est GFR (African American) 94.6 ml/min; Est GFR (Non-African American) 81.6 ml/min; Globulin 2.9 gm/dl (2.5-4.0); Potassium 4.1 mmol/L (3.5-5.1); Total Protein 6.9 gm/dl (6.0-8.3)
[2022-12-14 17:19] LABS: Pregnancy Test, Serum Negative (Negative)
[2022-12-14 17:25] LABS: Partial Thromboplastin Ratio 0.8; Partial Thromboplastin Time 21.9 Seconds (21.0-31.0); Prothrombin Time 10.3 Seconds (9.0-12.0)
[2022-12-14 17:39] LABS: Basophils # (auto) 0.06 K/uL (0-0.2); Eosinophils # (auto) 0.14 K/uL (0-0.50); Eosinophils % (auto) 2.3 %; Hematocrit (blood only) 37.6 % (37.0-47.0); Hemoglobin 12.9 g/dl (12.0-16.0); Immature Granulocytes # (auto) 0.01 K/uL (0.01-0.20); Immature Granulocytes % (auto) 0.2 %; Lymphocytes # (auto) 1.61 K/uL (1.2-3.4); Lymphocytes % (auto) 25.9 %; Mean Corpuscular Hemoglobin 30.1 pg (25.0-34.0); Mean Corpuscular Hgb Conc 34.3 g/dL (32.0-36.0); Mean Corpuscular Volume 87.9 fL (80.0-100.0); Mean Platelet Volume 10.7 fL (9.4-12.4); Monocytes # (auto) 0.53 K/uL (0.11-0.59); Monocytes % (auto) 8.5 %; Neutrophils # (auto) 3.86 K/uL (1.40-6.50); Neutrophils % (auto) 62.1 %; Platelet Count 209 K/uL (130-400); RDW Coefficient of Variation 12.7 % (11.5-14.5); Red Blood Count 4.28 M/uL (4.20-5.40); White Blood Count 6.21 K/ul (4.8-10.8)
[2022-12-14] MEDS ORDERED: ASPIRIN CHEW 324 MG PO STA (17:41)
--- NOTE | 2022-12-14 18:13 | History & Physical Report ---
Date of Service December 14, 2022 Assessment & Plan (1) Stroke-like symptoms: Plan: Strokelike symptoms TIA DD: Complicated Migraine Not a candidate for tPA--Not Indicated Admit in Tele --CT head:No acute intracranial abnormality. --CTA Head/Neck: No significant stenosis, occlusion, or aneurysm within the [place]. No significant stenosis, occlusion, or dissection identified within the carotid or vertebral arteries. A small area of patchy groundglass airspace opacities within the right upper lobe anteriorly. This may represent a low-grade pneumonitis. --Stroke work up including lipid panel, A1C, MRI Brain, ECHO, Lyme screen, Vit B 12 Speech and swallow eval Start aspirin, Lipitor Neuro checks Neurology consulted PT/OT as able Elevated troponin Rule out ACS Denies chest pain Reports dyspnea on exertion for 3 to 4 weeks Initial troponin: 164 EKG shows: Poor quality EKG. Normal sinus rhythm. Low voltage QRS. Left anterior fascicular block. Nonspecific ST-T wave changes. QTc 455. CXR: No acute process. Check ECHO Trend serial cardiac enzymes, repeat EKG, fasting lipid panel in AM Started Aspirin, statin as above NPO after midnight Consider cardiology evaluation if needed Presyncope H/O vertigo, recurrent presyncope Gentle IV fluids Check orthostatics Meclizine as needed Right upper lobe airspace opacity Incidental finding on imaging Denies any change in cough Attributes chronic intermittent cough due to GERD Procalcitonin 0.05 We will consider antibiotics if needed Will need repeat imaging as outpatient to monitor for resolution Mild hyponatremia Monitor sodium levels Gentle IV fluids Vitamin B12 deficiency On vitamin B12 injections monthly Check vitamin B12 levels chronic conditions: GERD--not on any meds obstructive sleep apnea--does not use CPAP Asthma--albuterol as needed Ocular migraine--Not on meds Right choroid fissure cyst Tubular adenoma of colon-as per records Fibroid uterus and ovarian cyst--on OCPs, follows with [employer] DVT Px: SCDs for now Code Status Full Code History of Present Illness Chief Complaint: Stroke like symptoms Primary Care Provider: Alfredo Deng PA-C Patient is a 52-year-old female with history of vertigo, GERD, obstructive sleep apnea, asthma, ocular migraine, right choroid fissure cyst, recurrent presyncope, tubular adenoma of colon, fibroid uterus and ovarian cyst presents with history of strokelike symptoms. Patient states having no prior history of stroke. At around 3:15 PM this afternoon, patient was talking to her boss while she developed sudden onset of blurred vision, difficulty to articulate, right facial droop and numbness and dizziness which lasted for about 2 to 3 minutes and resolved. She also states developing right retrobulbar pain, right earache and right-sided neck pain, nonradiating, initially 7/10 intensity, currently 1/10. She reports having sinus infection about 1 month ago and completed Z-Manjinder, Augmentin at the time. Reports intermittent cough which she attributes to her GERD. Also states having dyspnea on exertion which has been ongoing since 3 to 4 weeks. She states having syncopal episode many years ago but has been having presyncopal symptoms, intermittent right facial and left upper extremity num bness over the past 1-1/2 years. She also states having intermittent "Crossing of Eyes" and noticing zigzag lines over the past 1-2 yrs and was evaluated by her front desk worker and was told to have no problems with her eyes. She had an MRI brain on 11/04/2022 for ongoing headaches and visual symptoms which showed small right choroid fissure cyst without any mass effect. She is due to be followed by her neurologist for further evaluation as outpatient. Telestroke evaluated the patient in the ED who recommended no tPA. Denies any history of chest pain, palpitations, orthopnea, PND, wheezing, hemoptysis, fever, chills, fall, head trauma, headache, focal weakness, bowel/bladder incontinence, nausea, vomiting, abdominal pain, diarrhea, dysuria, hematuria, recent change in medications. Allergies Allergy/AdvReac Type Severity Reaction Status Date / Time pseudoephedrine Allergy Mild PASSED OUT Verified 04/01/22 08:06 chlorhexidine Allergy Verified 04/01/22 08:06 Home Medications Medication Instructions Recorded Confirmed Type inhalational spacing device #1 ea 01/29/20 12/14/22 Rx (Melissa Jin [facility] spacer) norethindrone acetate 1 mg-ethinyl 1 tab PO DAILY 04/01/22 12/14/22 History estradiol 20 mcg tablet (Junel) albuterol sulfate 90 mcg/actuation 2 puff inhalation Q4 PRN shortness 12/14/22 12/14/22 History aerosol inhaler (ProAir HFA) of breath or wheezing cyanocobalamin (vitamin B-12) 1,000 mcg IM Q28D 12/14/22 12/14/22 History 1,000 mcg/mL injection solution Past Med/Surg History Medical History Anxiety Cervical high risk HPV (human papillomavirus) test positive Dysfunctional uterine bleeding Female infertility History of syncope HX OF EPISODES OF SYNCOPE, LAST EPISODE 8 MONTHS AGO. PT STATES IT HAS OCCURED WITH "NO KNOWN TRIGGER". PT IS A RUNNER AND HR TENDS TO BE LOW 38. PT STATES THAT NO FURTHER WORK UP WAS DONE. Menopausal and perimenopausal disorder Menorrhagia Mononucleosis Oral contraceptive pill surveillance Sleep apnea Uterine leiomyoma Vitamin D deficiency Surgical History H/O colonoscopy 2018, change in habits, sigmoid polyp. H/O hand surgery H/O LEEP in the . History of appendectomy History of esophagogastroduodenoscopy (EGD) 2018 History of myomectomy Family History Father Myocardial infarction Prostate cancer Lung cancer Congestive heart failure (CHF) Mother Leukemia Hypertension Denies family history of Ovarian cancer Breast cancer Colorectal cancer Social History Smoking Status: Never smoker Second Hand Exposure: No; Hx Alcohol Use: Yes Alcohol type: wine Hx Substance Use: No Preferred Language: Persian Communication Ability: Effective Visual Impairment: No Limitations Hearing Ability: Normal Marine Engine Mechanic Required: No Beliefs That Will Affect Care: None marital status: Current Living Situation: Alone current occupational status: employed current occupation: sales Feels Safe at Home: Yes Childhood Exposure to Second-Hand Smoke: No Dental Care, Regularly: Yes Physical Activity Frequency: Does not Exercise Seatbelt Use: always Sunscreen Use: No Assistive Devices: Contacts Review of Systems Review of Systems: All systems reviewed & are unremarkable except as noted in Subjective Physical Exam Physical Exam: Physical Exam: Vitals signs as noted above General Appearance:Moderately built and nourished, no apparent distress Head: normocephalic, Atraumatic Eyes: normal inspection, EOMI Neck: supple, Trachea midline Respiratory/Chest: Normal breath sounds, CTA, No accessory muscle use Cardiovascular: S1, S2, No murmur Abdomen/GI:Soft, Non tender, Bowel sounds present Extremities/Musculoskeletal:normal inspection, no edema Neurologic/Psych:AAOX3, grossly no focal neurological deficits Skin: normal color, warm Results & Data Results & Data ([facility]) Vital Signs (Past 12 Hours) Vital Signs Pulse Resp BP Pulse Ox O2 Del Method 12/14/22 18:00 68 21 126/70 98 Room Air 12/14/22 17:30 65 20 116/77 97 Room Air 12/14/22 17:21 68 25 H 110/86 99 Room Air 12/14/22 17:00 68 17 120/72 99 Room Air 12/14/22 16:45 71 30 H 117/80 99 Room Air 12/14/22 16:38 65 23 115/68 100 Room Air Laboratory Results Short CBC 12/14/22 Range/Units 16:30 WBC 6.21 (4.8-10.8) K/ul Hgb 12.9 (12.0-16.0) g/dl Hct 37.6 (37.0-47.0) % Plt Count 209 (130-400) K/uL BMP 12/14/22 16:30 Sodium 133 L Potassium 4.1 Chloride 104 Carbon Dioxide 21 BUN 12 Creatinine 0.83 Glucose 76 Calcium 9.2 Liver Function 12/14/22 Range/Units 16:30 Total Bilirubin 0.5 (0.2-1.0) mg/dl AST 23 (13-39) U/L ALT 17 (7-52) U/L Alkaline Phosphatase 40 (34-104) U/L Albumin 4.0 (3.4-5.0) gm/dl Diagnostic Findings --CT head:No acute intracranial abnormality. --CXR:No acute process. --CTA Head/Neck: No significant stenosis, occlusion, or aneurysm within the [place]. No significant stenosis, occlusion, or dissection identified within the carotid or vertebral arteries. A small area of patchy groundglass airspace opacities within the right upper lobe anteriorly. This may represent a low-grade pneumonitis. Medications Administered Home Medications Medication Instructions Recorded Confirmed norethindrone acetate 1 mg-ethinyl 1 tab PO DAILY 04/01/22 12/14/22 estradiol 20 mcg tablet (Junel) albuterol sulfate 90 mcg/actuation 2 puff inhalation Q4 PRN shortness 12/14/22 12/14/22 aerosol inhaler (ProAir HFA) of breath or wheezing cyanocobalamin (vitamin B-12) 1,000 mcg IM Q28D 12/14/22 12/14/22 1,000 mcg/mL injection solution Previous Rx's Medication Instructions Recorded inhalational spacing device #1 ea 01/29/20 ([employer] [facility] spacer) ECG Additional Comments: EKG: Poor quality EKG. Normal sinus rhythm. Low voltage QRS. Left anterior fascicular block. Nonspecific ST-T wave changes. QTc 455.
[2022-12-14] MEDS ORDERED: ASPIRIN CHEW 324 MG ONE (20:49)
[2022-12-14] MEDS ORDERED: PHARMACIST DISCHARGE MED REC CONSULT PRN (21:44)
[2022-12-14] MEDS ORDERED: POLYETHYLENE (MIRALAX) 17 GM PACK PO PRN (21:44)
[2022-12-14] MEDS ORDERED: ALBUTEROL HFA 8 GM INHALER INH PRN (21:44)
[2022-12-14] MEDS ORDERED: ACETAMINOPHEN 325 MG TAB PO PRN (21:44)
[2022-12-14] MEDS ORDERED: MECLIZINE 12.5 MG TAB PO PRN (21:44)
[2022-12-14] MEDS ORDERED: NITROGLYCERIN SL 0.4 MG/TAB TAB SL PRN (21:44)
[2022-12-14] MEDS ORDERED: ONDANSETRON INJ 2 MG/ML 2 ML VIAL IV PRN (21:44)
[2022-12-14] MEDS ORDERED: SODIUM CHLORIDE 0.9% 1000ML 1,000 ML IV ONE (22:00)
[2022-12-14] MEDS ORDERED: GADOBUTROL 65ML VIAL IV ONE (22:51)
[2022-12-15 05:43] LABS: Basophils # (auto) 0.04 K/uL (0-0.2); Basophils % (auto) 0.7 %; Eosinophils # (auto) 0.16 K/uL (0-0.50); Eosinophils % (auto) 2.8 %; Hematocrit (blood only) 35.2 % (37.0-47.0); Hemoglobin 12.1 g/dl (12.0-16.0); Immature Granulocytes # (auto) 0.02 K/uL (0.01-0.20); Immature Granulocytes % (auto) 0.4 %; Lymphocytes # (auto) 1.81 K/uL (1.2-3.4); Lymphocytes % (auto) 31.8 %; Mean Corpuscular Hemoglobin 30.4 pg (25.0-34.0); Mean Corpuscular Hgb Conc 34.4 g/dL (32.0-36.0); Mean Corpuscular Volume 88.4 fL (80.0-100.0); Mean Platelet Volume 9.7 fL (9.4-12.4); Monocytes # (auto) 0.56 K/uL (0.11-0.59); Monocytes % (auto) 9.8 %; Neutrophils % (auto) 54.5 %; Platelet Count 194 K/uL (130-400); RDW Coefficient of Variation 12.7 % (11.5-14.5); RDW Standard Deviation 41.4 fL (36.4-46.3); Red Blood Count 3.98 M/uL (4.20-5.40); White Blood Count 5.69 K/ul (4.8-10.8)
[2022-12-15 05:59] LABS: BUN Creatinine Ratio 12.5 (10-20); Calcium 8.7 mg/dl (8.5-10.1); Chol HDL Ratio 2.8 (0-5); Creatinine Clr Calc Pharmacy 81.2 ml/min; Est GFR (African American) 88.2 ml/min; Est GFR (Non-African American) 76.1 ml/min; Magnesium 1.9 mg/dl (1.7-2.4); Phosphorus 3.9 mg/dl (2.5-4.9); Potassium 4.1 mmol/L (3.5-5.1)
[2022-12-15 06:53] LABS: Pregnancy Test, Urine Negative (Negative)
[2022-12-15 07:13] LABS: Lyme Ab IgG w/WB Rflx Negative (Negative); Lyme Ab IgM w/WB Rflx Negative (Negative)
--- NOTE | 2022-12-15 08:05 | Magnetic Resonance Report ---
MRI OF THE BRAIN COMBO CLINICAL HISTORY: Strokelike symptoms. COMPARISON STUDY: CT of the brain dated 12/14/2022. MRI of the brain dated 06/17/2015. TECHNIQUE: MRI of the brain was performed utilizing various T1 and T2-weighted sequences in the axial , sagittal, and coronal planes. Contrast-enhanced sequences were acquired following the administratio n of 7.5 cc of Gadavist. FINDINGS: Brain parenchyma: There is no hemorrhage or mass effect. There is an indeterminant 4 mm focus of appa rent restricted diffusion suggested involving the high right parietal cortex on image #19. No additio nal foci of restricted diffusion are identified. No enhancing mass lesion is identified on the postco ntrast images. [place]-white matter differentiation is preserved. No extra-axial fluid collection is see n. The cerebellar tonsils are normal in configuration. Ventricles, sulci, and cisterns: Normal in configuration. Pituitary and sella: Unremarkable. Intracranial vasculature: Normal flow voids are maintained at the skull base. Orbits: The bony orbits are grossly intact. Orbital contents are normal in appearance. Sinuses and mastoids: Clear. Calvarium: Unremarkable. Cervical cord: Partially visualized cervical spinal cord is normal in morphology and signal intensity . IMPRESSION: 1. There is a 4 mm focus of questionable restricted diffusion versus artifact involving the high righ t parietal cortex. A punctate acute to subacute infarct is not excluded. 2. No additional foci of restricted diffusion are identified. 3. There is no hemorrhage, enhancing lesion, or mass effect. ACT 112: Negative or not required by law. Electronically signed by: Jasvir Crook M.D. 12/15/2022 8:02 AM
[2022-12-15] MEDS: ATORVASTATIN 40 MG TAB PO SCH (09:11)
[2022-12-15] MEDS: ASPIRIN 81 MG ECTAB PO SCH (09:11)
[2022-12-15 09:43] LABS: Estimated Average Glucose 117 mg/dl; Hemoglobin A1C 5.7 % (4.5-5.6)
--- NOTE | 2022-12-15 10:45 | Cardiology Consultation ---
Date of Consultation December 15, 2022 Assessment & Plan (1) TIA (transient ischemic attack): (2) Elevated troponin: (3) Family history of sudden cardiac (SCD): Plan 52-year-old female who initially presented with stroke-like symptoms as described below. Did not receive tPA, symptoms resolved spontaneously after a few minutes. Patient carries a 2-year history of numbness/tingling in her face and arms. High-sensitivity troponins elevated but trending down. Brain MRI now abnormal. She is on control and has been for a number of years due to a fibroid that was causing her significant pain with menstruation. She is denying any cardiac concerns including chest pain or dyspnea. Strong family history for sudden cardiac . Exercise stress echo negative for inducible ischemia with unremarkable resting study in 2020. -Agree with neurology consultation, continue aspirin and statin as ordered per hospitalist team -No episodes of paroxysmal A. fib seen on telemetry thus far, continue to monitor while inpatient. Would recommend outpatient 14-day ZIO monitor at discharge. -Echocardiogram obtained, images pending. Will rule out ASD/PFO as well as LV systolic function and valvular status. -EKG showing low voltage QRS with nonspecific ST/T wave abnormalities. General unchanged from prior EKGs as an outpatient. High-sensitivity troponins elevated but trending downward. Unlikely to be related to ACS and is likely elevated due to recent TIA -Given family history of sudden cardiac can consider cardiac genetic testing as an outpatient. -Given recent TIA with oral control use, consideration for discontinuation should be made. Will defer to hospitalist team. -Okay to eat from a cardiac standpoint. Agree with evaluation by neurology, PT/OT, and speech. Case discussed with Dr. Rodas. We will follow. Supervising Physician Co-Signing Physician Notes Cardiology attending: I personally performed a history and physical exam. Agree with findings and plan as outlined by ODALIS Peterson with additions as noted below. Subjective: 52-year-old healthy female presents to the emergency department yesterday with having had an episode that lasted approximately 13 minutes. Symptom onset 3:15 PM. She does have a conversation with her boss. She been acutely lightheaded, and noted right facial/head numbness, right facial dalila oping, and difficulty articulating her speech. The majority of the issues lasted 2 to 3 minutes and then she had a significant right-sided headache in her ear and right neck. Examination: Cardiovascular: Regular rhythm, no murmurs rubs or gallops Neurological: No focal deficits present. Data: EKG performed 12/15/2022 at 4:55 AM revealed normal sinus rhythm at 60 bpm. An age-indeterminate inferior infarct excluded. Otherwise no significant abnormality. Telemetry reveals a sinus rhythm in 70s. Noncontrast CT of the brain without acute abnormality, CT angiogram of the head and neck, without any acute abnormality Per radiology report, MRI of the brain revealed a 4 mm focus of questionable restricted diffusion versus artifact within the right parietalcortex suggestive of possible punctate acute infarct. Transthoracic echocardiogram performed today reviewed independently revealed normal wall motion, normal LVEF. There is no atrial septal defect. The resolution is insufficient to exclude the presence of a small PFO. With the administration agitated saline contrast, a scant number of bubbles were noted across, suggestive of a possible interatrial shunt. High sensitive troponin mildly elevated at 164, 146, 135 PG per mL x3 measurements Impression: Strokelike symptoms, with findings on MRI suggestive of small high right parietal infarct Mild elevation of troponin (perhaps related to neurologic event), symptoms not suggestive of an acute coronary syndrome Patient with complaint of chronic dyspnea exertion, has had a relatively recent stress test which was negative. As noted, LVEF normal, no symptoms suggestive of angina present. Possible patent foramen ovale History of treatment oral contraceptive Plan: The patient's treatment oral contraception/estrogen onset has been discontinued. Agree with medical therapy including aspirin and atorvastatin. We will have neurology weigh in as to whether or not a 21-day course of clopidogrel would be indicated. Recommend proceeding with a 14-day Zio patch monitor for screening for atrial fibrillation. Given her symptoms and concerns with regards to cryptogenic stroke and patent foramen ovale, recommend proceeding with upper and lower extremity venous duplex for work-up of possible paradoxical embolism. Hypercoagulable blood work panel ordered. Recommend proceeding with a transesophageal echocardiogram. Patient agreeable to staying in the hospital for this and having it performed tomorrow. Briana Anderson DO History of Present Illness Reason for Consultation: Elevated troponin Stroke-like symptoms Requesting Physician: Simona hospitalist Attending Physician: Brett Ramey MD History of Present Illness 52-year-old female who initially presented to the [facility] emergency department in the afternoon on 12/14 due to sudden onset of blurred vision, difficulty speaking, right sided facial droop, dizziness, and facial numbness. Symptoms lasted for approximately 2 to 3 minutes. Telestroke evaluated the patient in the ED, no tPA recommended. No exertional chest pain or ALFARO. Patient was started on aspirin and Lipitor. Patient carries a history of intermittent visual changes and right-sided facial and left-sided upper extremity numbness as well as presyncope over the last 1.5- 2 years. She has known history of ocular migraines and had a brain MRI completed on 11/04/2022 which showed a small right choroid fissure cyst without any mass effect. Plans to follow with neurology as an outpatient. Labs: CBC stable, renal function electrolytes within normal limits, high-sensi tivity troponin elevated (164>>146.6>>135.2), cholesterol controlled Chest x-ray: Unremarkable Head CT: No acute intracranial abnormality Head/ CTA: No significant stenosis, occlusion, or aneurysm of the head and neck Brain MRI: 1. There is a 4 mm focus of questionable restricted diffusion versus artifact involving the high right parietal cortex. A punctate acute to subacute infarct is not excluded. 2. No additional foci of restricted diffusion are identified. 3. There is no hemorrhage, enhancing lesion, or mass effect. Echo: PENDING * EKG 12/15: Normal sinus rhythm with low voltage QRS, diffuse nonspecific T wave abnormality * Chart and telemetry reviewed. Patient seen and examined at bedside. Telemetry: NSR 70s, no PAF Upon entrance into the room patient resting comfortably in bed. Denies any further neurologic changes. No exertional chest pain or unusual shortness of breath. Denies any prior history of coronary artery disease, stroke, or rheumatic heart disease. She is on oral control. She also has a very strong family history for sudden cardiac . Notes that her paternal grandfather suddenly in his 50s, her father has an ICD and her half-sister also has an ICD. Past medical history KATHY GERD Vertigo Ocular migraines H/o B12 deficiency- received injections Uterine fibroid History of nonischemic exercise stress echo 02/2021 Allergies Allergy/AdvReac Type Severity Reaction Status Date / Time pseudoephedrine Allergy Mild PASSED OUT Verified 04/01/22 08:06 chlorhexidine Allergy Verified 04/01/22 08:06 Home Medications Medication Instructions Recorded Confirmed Type inhalational spacing device #1 ea 01/29/20 12/14/22 Rx (Melissa Jin [facility] spacer) norethindrone acetate 1 mg-ethinyl 1 tab PO DAILY 04/01/22 12/14/22 History estradiol 20 mcg tablet (Junel) albuterol sulfate 90 mcg/actuation 2 puff inhalation Q4 PRN shortness 12/14/22 12/14/22 History aerosol inhaler (ProAir HFA) of breath or wheezing cyanocobalamin (vitamin B-12) 1,000 mcg IM Q28D 12/14/22 12/14/22 History 1,000 mcg/mL injection solution Patient History Medical History Anxiety Cervical high risk HPV (human papillomavirus) test positive Dysfunctional uterine bleeding Female infertility History of syncope HX OF EPISODES OF SYNCOPE, LAST EPISODE 8 MONTHS AGO. PT STATES IT HAS OCCURED WITH "NO KNOWN TRIGGER". PT IS A RUNNER AND HR TENDS TO BE LOW 38. PT STATES THAT NO FURTHER WORK UP WAS DONE. Menopausal and perimenopausal disorder Menorrhagia Mononucleosis Oral contraceptive pill surveillance Sleep apnea Uterine leiomyoma Vitamin D deficiency Surgical History H/O colonoscopy 2018, change in habits, sigmoid polyp. H/O hand surgery H/O LEEP in the . History of appendectomy History of esophagogastroduodenoscopy (EGD) 2018 History of myomectomy Family History Father Myocardial infarction Prostate cancer Lung cancer Congestive heart failure (CHF) Mother Leukemia Hypertension Denies family history of Ovarian cancer Breast cancer Colorectal cancer Social History Smoking Status: Never smoker Second Hand Exposure: No; Do You Dip or Chew Tobacco: No; Tobacco Cessation Education Requested by Patient: No Hx Alcohol Use: No Hx Substance Use: No Preferred Language: [place]ian Communication Ability: Effective Visual Impairment: No Limitations Hearing Ability: Normal Physical Education Teacher Required: No Beliefs That Will Affect Care: None marital status: Current Living Situation: Spouse current occupational status: employed current occupation: sales Other Information That Helps Us Care for You: No Feels Safe at Home: Yes Safety Concerns: Feels Safe At This Time Childhood Exposure to Second-Hand Smoke: No Dental Care, Regularly: Yes Physical Activity Frequency: Does not Exercise Seatbelt Use: always Sunscreen Use: No Assistive Devices: None Review of Systems Review of Systems: All systems reviewed & are unremarkable except as noted in HPI & below Physical Exam Constitutional: WD/WN, vitals as above no acute distress Eyes: PERRL, conjunctivae normal, anicteric sclerae Neck: normal visual inspection and trachea midline Respiratory: normal respiratory effort, lungs clear to auscultation Auscultation: no rales, no rhonchi and no wheezes Cardiovascular: RRR, no murmur, no edema Heart Sounds: normal S1 and normal S2; no murmur Palpation: normal PMI Vessels: no JVD Extremities: no edema Chest (Breasts): Chest: normal inspection of chest Gastrointestinal (Abdomen): normal bowel sounds, soft, nontender, no hepatosplenomegaly Skin: no rashes, warm and dry Neurologic: PERRL, EOMI, accommodation nl, no face palsy, no dysarthria Psychiatric: A+Ox3, euthymic affect Results & Data ([facility]) Vital Signs (Past 12 Hours) Vital Signs Temp Pulse Pulse Resp BP BP Pulse Ox 12/15/22 10:23 60 12/15/22 07:44 36.7 C 76 17 116/74 96 12/15/22 03:19 36.8 C 60 18 100/65 96 12/15/22 00:34 63 12/14/22 23:12 36.4 C L 63 18 105/65 96 O2 Del Method 12/15/22 10:23 12/15/22 07:44 Room Air 12/15/22 03:19 Room Air 12/15/22 00:34 12/14/22 23:12 Room Air Laboratory Results Cardiac Enzymes 12/14/22 12/14/22 12/15/22 Range/Units 16:30 23:39 05:24 AST 23 (13-39) U/L Troponin I High Sens 164.0 H* 146.6 H* 135.2 H* (0-14) pg/ml Coagulation 12/14/22 Range/Units 16:30 PT 10.3 (9.0-12.0) Seconds APTT 21.9 (21.0-31.0) Seconds Lipids 12/15/22 Range/Units 05:24 Triglycerides 101 (0-150) mg/dl Cholesterol 148 (0-200) mg/dl HDL Cholesterol 52 mg/dl Cholesterol/HDL Ratio 2.8 (0-5) CBC 12/14/22 12/15/22 Range/Units 16:30 05:24 WBC 6.21 5.69 (4.8-10.8) K/ul RBC 4.28 3.98 L (4.20-5.40) M/uL Hgb 12.9 12.1 (12.0-16.0) g/dl Hct 37.6 35.2 L (37.0-47.0) % Plt Count 209 194 (130-400) K/uL Neut # (Auto) 3.86 3.10 (1.40-6.50) K/uL Lymph # (Auto) 1.61 1.81 (1.2-3.4) K/uL [place] # (Auto) 0.53 0.56 (0.11-0.59) K/uL Eos # (Auto) 0.14 0.16 (0-0.50) K/uL Baso # (Auto) 0.06 0.04 (0-0.2) K/uL Comprehensive Metabolic Panel 12/14/22 12/15/22 Range/Units 16:30 05:24 Sodium 133 L 138 (136-145) mmol/L Potassium 4.1 4.1 (3.5-5.1) mmol/L Chloride 104 110 H (98-107) mmol/L Carbon Dioxide 21 22 (21-32) mmol/L BUN 12 11 (6-23) mg/dl Creatinine 0.83 0.88 (0.6-1.2) mg/dl Glucose 76 74 (70-99(Fasting)) mg/dl Calcium 9.2 8.7 (8.5-10.1) mg/dl AST 23 (13-39) U/L ALT 17 (7-52) U/L Alkaline Phosphatase 40 (34-104) U/L Total Protein 6.9 (6.0-8.3) gm/dl Albumin 4.0 (3.4-5.0) gm/dl Intake and Output 12/14/22 12/15/22 12/15/22 22:59 06:59 14:59 Intake Total 1000 / 1000 Output Total 650 / 650 Balance -650 / -650 1000 / 1000 Intake: IV 1000 / 1000 Sodium Chloride 0.9% 1000ML 1, 1000 / 1000 000 ml @ 100 mls/hr IV .Q10H ONE Rx#:[id number] Output: Urine 650 / 650 Other: Other Intake Source npo # Unmeasured Voids 1 Weight 79.379 kg 79.4 kg Weight Measurement Method Built in [facility] Diagnostic Findings Exercise stress echo 03/09/2021 as an outpatient Interpretation Summary The stress echo is negative for inducible ischemia. Exercise capacity is above average . Resting Study: The qualitative LV ejection fraction is 55-59% (normal). The left ventricular diastolic function is normal. No significant valvular disease is present.
--- NOTE | 2022-12-15 14:03 | Electrocardiogram Report ---
Test Reason : Blood Pressure : / mmHG Vent. Rate : 075 BPM Atrial Rate : 075 BPM P-R Int : 178 ms QRS Dur : 070 ms QT Int : 408 ms P-R-T Axes : 044 -57 039 degrees QTc Int : 455 ms Poor data quality, interpretation may be adversely affected Normal sinus rhythm Low voltage QRS Left anterior fascicular block Inferior infarct , age undetermined Poor R wave progression, consider anterior CA vs. lead placement vs. LVH Abnormal ECG When compared with ECG of 31-DEC-2007 20:22, Left anterior fascicular block is now Present Inferior infarct is now Present Nonspecific T wave abnormality now evident in Lateral leads Confirmed by Avery Riggins ([id number]) on 12/15/2022 2:02:56 PM Referred By: Alfredo Deng Confirmed By:Avery Riggins
--- NOTE | 2022-12-15 14:13 | Electrocardiogram Report ---
Test Reason : Blood Pressure : / mmHG Vent. Rate : 068 BPM Atrial Rate : 068 BPM P-R Int : 192 ms QRS Dur : 084 ms QT Int : 408 ms P-R-T Axes : 077 -43 001 degrees QTc Int : 433 ms Normal sinus rhythm Left axis deviation Low voltage QRS Inferior infarct (cited on or before 14-DEC-2022) Poor R wave progression, consider anterior IL vs. lead placement vs. LVH Abnormal ECG When compared with ECG of 14-DEC-2022 16:28, (unconfirmed) Nonspecific T wave abnormality no longer evident in Lateral leads Confirmed by Avery Riggins ([id number]) on 12/15/2022 2:12:32 PM Referred By: Alfredo Deng Confirmed By:Avery Riggins
--- NOTE | 2022-12-15 14:14 | Ultrasound Report ---
ULTRASOUND BILATERAL LOWER EXTREMITY VENOUS CLINICAL HISTORY: Stroke. Patent foramen ovale. COMPARISON STUDY: No priors. TECHNIQUE: Real-time, grayscale, and color Doppler sonography of the deep veins of the right and left lower extremity was performed from the inguinal crease to the calf. Compression and augmentation wer e utilized. FINDINGS: There is no sonographic evidence of deep venous thrombosis identified in the right or left lower extremity. The common femoral, superficial femoral, and popliteal veins are patent and normally compressible bilaterally. The greater saphenous vein and the profunda femoris vein at the junction w ith the common femoral vein are clear in both legs. The visualized calf veins are patent bilaterally. IMPRESSION: There is no sonographic evidence of deep venous thrombosis identified in the right or lef t lower extremity. ACT 112: Negative or not required by law. Electronically signed by: Jasvir Crook M.D. 12/15/2022 2:12 PM
--- NOTE | 2022-12-15 14:56 | Ultrasound Report ---
BILATERAL UPPER EXTREMITY VENOUS DOPPLER ULTRASOUND CLINICAL HISTORY: Stroke,PFO COMPARISON STUDY: No previous studies for comparison. TECHNIQUE: Sonography of the venous systems of both upper extremities was performed. FINDINGS: No deep venous thrombus is identified within the upper extremities. The internal jugular, s ubclavian, axillary, brachial, radial, ulnar, cephalic and basilic veins are patent. IMPRESSION: No deep venous thrombus within the bilateral upper extremities. ACT 112: Negative or not required by law. Electronically signed by: Benny Tovar M.D. 12/15/2022 2:54 PM
--- NOTE | 2022-12-15 16:02 | Neurology Consultation ---
Date of Consultation December 15, 2022 Assessment & Plan (1) Stroke-like symptoms: Impression: The patient presented with sudden onset, right facial droop, numbness, blurred vision, ear ache, which resolved mostly in few minutes. There was no following headache although the patient felt short lasting ear ache and occipital pain. She was diagnosed with ocular migraine. Current presentation is suggestive of complicated migraine, however, brain MRI showed right posterior frontal cortical diffusion restriction which might suggest acute/subacute ischemic stroke. Artifact is also possibility. Stroke work-up otherwise unremarkable other than small patent foramen ovale. There is no clinical or ultrasound findings to suggest deep venous thrombosis. Plan/recommendations: We will keep the patient on aspirin 81 mg daily. I do not see indication for antilipid treatment. Repeat brain MRI only portion of diffusion restriction, to find out whether initially reported abnormality was artifactual. If repeat study proved that there was diffusion restriction, then we will further investigate for stroke etiologies. Hypercoagulable state work-up. I agree with transesophageal echocardiogram. Cardiology evaluation for elevated troponin level. Estrogen containing pills might increase risk of cerebrovascular accident. If feasible, the patient should stop using Junel. Outpatient neurology clinic follow-up, for recent events, and migraine equivalent symptoms. At this time, there is no indication for preventive treatment. The patient is not a candidate for triptans. EEG to evaluate for simple partial seizures although this seems to be very unlikely, however, telestroke neurology suggested this study. Thank you for the consultation. (2) Elevated troponin: Impression: Cardiology is on board. (3) PFO (patent foramen ovale): Impression: Transthoracic echocardiogram showed probably small PFO. Plan/recommendations: Transesophageal echocardiogram is recommended. (4) Abnormal brain MRI: Impression: Recent brain MRI showed right posterior frontal cortical diffusion restriction, artifactual versus acute/subacute ischemic lesion. Plan: As seen above. 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 The patient has an appointment with outpatient neurosurgery. Recent symptoms are not related to choroid cyst. History of Present Illness Reason for Consultation: Stroke like symptoms Requesting Physician: Brett Ramey MD Attending Physician: Brett Ramey MD History of Present Illness The patient is a very pleasant, 52-year-old right-handed female, who presented emergency department yesterday, after she had sudden onset of right facial numbness, facial droop, blurry vision, dizziness, with right earache which was radiating to the ipsilateral occiput starting on 03:15 pm. She was evaluated by telestroke neurologist, and was not considered a candidate for thrombolytic treatment, as her symptoms were resolved mostly, in few minutes. The patient did not experience following headache. Head CT, CT angiogram of the head and neck were unremarkable. Cardiac monitoring was showing sinus rhythm. The patient was started on aspirin and Lipitor, and was admitted to hospital for further stroke work-up. The patient still has slight numbness on the right side of face, which is vague. Otherwise, she has been symptom-free since admission. Echocardiogram showed evidence of small patent foramen ovale. Transesophageal echocardiogram is suggested by cardiology which is pending. Lipid panel was essentially normal, with LDL level of 76. The patient denies having diagnosis of hypertension, hyperlipidemia, diabetes mellitus, but obstructive sleep apnea and she has not been smoker. She denies having stroke symptoms in the past. However, for over a year, she has been having occasional, visual symptoms which were described as zigzags, flashing lights, blurriness, typically lasting for few minutes, without associated headache, nausea, confusion, or physical activity intolerance. She typically gets such episodes twice a month. She was diagnosed with ocular migraine. She denies having typical migraine headaches in the past. She has no family history of migraine headaches or early age strokes. Premenopausal hormonal fluctuations consider to be a likely trigger of the patient's ocular migraine. She denies being on any new medications. She has no head and neck trauma history. She denies any mood changes, insomnia, or unusual stressors in her life. Interestingly, brain MRI showed right posterior frontal cortical, small, diffusion restriction, which might suggest acute/subacute ischemic stroke. However, potential artifact was also reported. Apparently, such lesion would not explain the patient's right sided symptoms, and we recommended repeat brain MRI including only diffusion restriction portion. I discussed the case with radiologist and they were in agreement with this suggestion. The patient denies history of having blood clots, miscarriages, or family history of blood clotting abnormalities. Upper and lower extremity US were negative for DVT. She is on Junel which contains estrogen and progesteron. I have reviewed the patient's chart including imaging studies and visualized them personally. I have discussed the case with the patient and radiologist. I have answered the patient's questions in detail. Allergies Allergy/AdvReac Type Severity Reaction Status Date / Time pseudoephedrine Allergy Mild PASSED OUT Verified 04/01/22 08:06 chlorhexidine Allergy Verified 04/01/22 08:06 Home Medications Medication Instructions Recorded Confirmed Type inhalational spacing device #1 ea 01/29/20 12/14/22 [facility]) norethindrone acetate 1 mg-ethinyl 1 tab PO DAILY 04/01/22 12/14/22 History estradiol 20 mcg tablet (Junel) albuterol sulfate 90 mcg/actuation 2 puff inhalation Q4 PRN shortness 12/14/22 12/14/22 History aerosol inhaler (ProAir HFA) of breath or wheezing cyanocobalamin (vitamin B-12) 1,000 mcg IM Q28D 12/14/22 12/14/22 History 1,000 mcg/mL injection solution Patient History Medical History Anxiety Cervical high risk HPV (human papillomavirus) test positive Dysfunctional uterine bleeding Female infertility History of syncope HX OF EPISODES OF SYNCOPE, LAST EPISODE 8 MONTHS AGO. PT STATES IT HAS OCCURED WITH "NO KNOWN TRIGGER". PT IS A RUNNER AND HR TENDS TO BE LOW 38. PT STATES THAT NO FURTHER WORK UP WAS DONE. Menopausal and perimenopausal disorder Menorrhagia Mononucleosis Oral contraceptive pill surveillance Sleep apnea Uterine leiomyoma Vitamin D deficiency Surgical History H/O colonoscopy 2018, change in habits, sigmoid polyp. H/O hand surgery H/O LEEP in the . History of appendectomy History of esophagogastroduodenoscopy (EGD) 2018 History of myomectomy Family History Father Myocardial infarction Prostate cancer Lung cancer Congestive heart failure (CHF) Mother Leukemia Hypertension Denies family history of Ovarian cancer Breast cancer Colorectal cancer Social History Smoking Status: Never smoker Second Hand Exposure: No; Do You Dip or Chew Tobacco: No; Tobacco Cessation Education Requested by Patient: No Hx Alcohol Use: No Hx Substance Use: No Preferred Language: Serbian Communication Ability: Effective Visual Impairment: No Limitations Hearing Ability: Normal Bark Peeler Required: No Beliefs That Will Affect Care: None marital status: Current Living Situation: Spouse current occupational status: employed current occupation: sales Other Information That Helps Us Care for You: No Feels Safe at Home: Yes Safety Concerns: Feels Safe At This Time Childhood Exposure to Second-Hand Smoke: No Dental Care, Regularly: Yes Physical Activity Frequency: Does not Exercise Seatbelt Use: always Sunscreen Use: No Assistive Devices: None Review of Systems Review of Systems: All systems reviewed & are unremarkable except as noted in HPI & below Physical Exam Physical Exam: General Examination: Constitutional: Well developed person in no acute distress. HENT: Normal exam with inspection. CV: Hearth rhythm is regular. Neck: Supple, no carotid bruits. Lungs: Non-labored and comfortable breathing. Abdomen: Soft, non-tender, non-distended. Skin: No rash or ecchymosis. Extremities: No edema or cyanosis NEUROLOGICAL EXAMINATION: Mental Status: Alert and oriented to place, person and time. Cranial Nerves: II-XII are intact. No nystagmus. Funduscopy: Normal looking optic discs. Motor: 5/5 in all extremities without asymmetry. Tone: Normal without spasticity or rigidity. Sensory: Intact to all sensory modalities other than slightly altered sensation on the right lower face. Coordination: No dysmetria with FTN testing. Speech: Fluent. Comprehension is intact. Gait: Normal. No ataxia or abnormal walking pattern. DTRs: 2+ all. No Babinsky Musculoskeletal: Normal muscle bulk, no atrophy. Results & Data ([facility]) Vital Signs (Past 12 Hours) Vital Signs Temp Pulse Pulse Resp BP BP Pulse Ox 12/15/22 15:52 36.8 C 69 18 109/74 98 12/15/22 11:21 36.8 C 73 18 99/68 L 95 12/15/22 10:23 60 12/15/22 07:44 36.7 C 76 17 116/74 96 O2 Del Method 12/15/22 15:52 Room Air 12/15/22 11:21 Room Air 12/15/22 10:23 12/15/22 07:44 Room Air Laboratory Results Laboratory Results - last 24 hr 12/14/22 12/14/22 12/14/22 16:28 16:30 16:30 WBC 6.21 RBC 4.28 Hgb 12.9 Hct 37.6 MCV 87.9 MCH 30.1 MCHC 34.3 RDW Std Deviation 41.0 RDW Coeff of Isreal 12.7 Plt Count 209 MPV 10.7 Immature Gran % (Auto) 0.2 Neut % (Auto) 62.1 Lymph % (Auto) 25.9 [place] % (Auto) 8.5 Eos % (Auto) 2.3 Baso % (Auto) 1.0 Neut # (Auto) 3.86 Lymph # (Auto) 1.61 [place] # (Auto) 0.53 Eos # (Auto) 0.14 Baso # (Auto) 0.06 Immature Gran # (Auto) 0.01 PT 10.3 INR 1.0 APTT 21.9 PTT Ratio 0.8 LA PTT Screen Protein C Activity Protein S Activity Antithrombin III Activ Factor V Leiden Mutat Factor V Leiden Interp Sodium Potassium Chloride Carbon Dioxide Anion Gap BUN Creatinine Est Cr Clr Drug Dosing Est GFR ( Amer) Est GFR (Non-Af Amer) BUN/Creatinine Ratio Glucose POC Glucose 86 Estimat Average Glucose Hemoglobin A1c Calcium Phosphorus Magnesium Total Bilirubin AST ALT Alkaline Phosphatase Troponin I High Sens Total Protein Albumin Globulin Albumin/Globulin Ratio Triglycerides Cholesterol LDL Cholesterol, Calc VLDL Cholesterol, Calc HDL Cholesterol Cholesterol/HDL Ratio Vitamin B12 Homocysteine Procalcitonin HCG, Qual Urine Test Beta-2-GPI IgG Ab Beta-2-GPI IgM Ab Anti-Cardiolipin IgG Ab Anti-Cardiolipin IgM Ab Lyme Disease IgG Ab Lyme Disease IgM Ab SARS-CoV-2, RNA, NAAT Prothrombin Gene Mutate Prothromb Gene Comment 12/14/22 12/14/22 12/14/22 16:30 16:30 16:30 WBC RBC Hgb Hct MCV MCH MCHC RDW Std Deviation RDW Coeff of [place] Plt Count MPV Immature Gran % (Auto) Neut % (Auto) Lymph % (Auto) [place] % (Auto) Eos % (Auto) Baso % (Auto) Neut # (Auto) Lymph # (Auto) [place] # (Auto) Eos # (Auto) Baso # (Auto) Immature Gran # (Auto) PT INR APTT PTT Ratio LA PTT Screen Protein C Activity Protein S Activity Antithrombin III Activ Factor V Leiden Mutat Factor V Leiden Interp Sodium 133 L Potassium 4.1 Chloride 104 Carbon Dioxide 21 Anion Gap 8 BUN 12 Creatinine 0.83 Est Cr Clr Drug Dosing 87.4 Est GFR ( Amer) 94.6 Est GFR (Non-Af Amer) 81.6 BUN/Creatinine Ratio 14.5 Glucose 76 POC Glucose Estimat Average Glucose Hemoglobin A1c Calcium 9.2 Phosphorus Magnesium 2.0 Total Bilirubin 0.5 AST 23 ALT 17 Alkaline Phosphatase 40 Troponin I High Sens 164.0 H* Total Protein 6.9 Albumin 4.0 Globulin 2.9 Albumin/Globulin Ratio 1.4 Triglycerides Cholesterol LDL Cholesterol, Calc VLDL Cholesterol, Calc HDL Cholesterol Cholesterol/HDL Ratio Vitamin B12 Homocysteine Procalcitonin < 0.05 HCG, Qual Negative Urine Test Beta-2-GPI IgG Ab Beta-2-GPI IgM Ab Anti-Cardiolipin IgG Ab Anti-Cardiolipin IgM Ab Lyme Disease IgG Ab Lyme Disease IgM Ab SARS-CoV-2, RNA, NAAT Prothrombin Gene Mutate Prothromb Gene Comment 12/14/22 12/14/22 12/15/22 23:39 Unknown 05:24 WBC RBC Hgb Hct MCV MCH MCHC RDW Std Deviation RDW Coeff of [place] Plt Count MPV Immature Gran % (Auto) Neut % (Auto) Lymph % (Auto) [place] % (Auto) Eos % (Auto) Baso % (Auto) Neut # (Auto) Lymph # (Auto) [place] # (Auto) Eos # (Auto) Baso # (Auto) Immature Gran # (Auto) PT INR APTT PTT Ratio LA PTT Screen Protein C Activity Protein S Activity Antithrombin III Activ Factor V Leiden Mutat Factor V Leiden Interp Sodium Potassium Chloride Carbon Dioxide Anion Gap BUN Creatinine Est Cr Clr Drug Dosing Est GFR ( Amer) Est GFR (Non-Af Amer) BUN/Creatinine Ratio Glucose POC Glucose Estimat Average Glucose Hemoglobin A1c Calcium Phosphorus Magnesium Total Bilirubin AST ALT Alkaline Phosphatase Troponin I High Sens 146.6 H* 135.2 H* Total Protein Albumin Globulin Albumin/Globulin Ratio Triglycerides Cholesterol LDL Cholesterol, Calc VLDL Cholesterol, Calc HDL Cholesterol Cholesterol/HDL Ratio Vitamin B12 Homocysteine Procalcitonin HCG, Qual Urine Test Beta-2-GPI IgG Ab Beta-2-GPI IgM Ab Anti-Cardiolipin IgG Ab Anti-Cardiolipin IgM Ab Lyme Disease IgG Ab Lyme Disease IgM Ab SARS-CoV-2, RNA, NAAT NEGATIVE Prothrombin Gene Mutate Prothromb Gene Comment 12/15/22 12/15/22 12/15/22 05:24 05:24 05:24 WBC 5.69 RBC 3.98 L Hgb 12.1 Hct 35.2 L MCV 88.4 MCH 30.4 MCHC 34.4 RDW Std Deviation 41.4 RDW Coeff of Isreal 12.7 Plt Count 194 MPV 9.7 Immature Gran % (Auto) 0.4 Neut % (Auto) 54.5 Lymph % (Auto) 31.8 [place] % (Auto) 9.8 Eos % (Auto) 2.8 Baso % (Auto) 0.7 Neut # (Auto) 3.10 Lymph # (Auto) 1.81 [place] # (Auto) 0.56 Eos # (Auto) 0.16 Baso # (Auto) 0.04 Immature Gran # (Auto) 0.02 PT INR APTT PTT Ratio LA PTT Screen Protein C Activity Protein S Activity Antithrombin III Activ Factor V Leiden Mutat Factor V Leiden Interp Sodium 138 Potassium 4.1 Chloride 110 H Carbon Dioxide 22 Anion Gap 6 BUN 11 Creatinine 0.88 Est Cr Clr Drug Dosing 81.2 Est GFR ( Amer) 88.2 Est GFR (Non-Af Amer) 76.1 BUN/Creatinine Ratio 12.5 Glucose 74 POC Glucose Estimat Average Glucose 117 Hemoglobin A1c 5.7 H Calcium 8.7 Phosphorus 3.9 Magnesium 1.9 Total Bilirubin AST ALT Alkaline Phosphatase Troponin I High Sens Total Protein Albumin Globulin Albumin/Globulin Ratio Triglycerides 101 Cholesterol 148 LDL Cholesterol, Calc 76 VLDL Cholesterol, Calc 20 HDL Cholesterol 52 Cholesterol/HDL Ratio 2.8 Vitamin B12 Homocysteine Procalcitonin HCG, Qual Urine Test Beta-2-GPI IgG Ab Beta-2-GPI IgM Ab Anti-Cardiolipin IgG Ab Anti-Cardiolipin IgM Ab Lyme Disease IgG Ab Lyme Disease IgM Ab SARS-CoV-2, RNA, NAAT Prothrombin Gene Mutate Prothromb Gene Comment 12/15/22 12/15/22 12/15/22 05:24 05:24 06:16 WBC RBC Hgb Hct MCV MCH MCHC RDW Std Deviation RDW Coeff of [place] Plt Count MPV Immature Gran % (Auto) Neut % (Auto) Lymph % (Auto) [place] % (Auto) Eos % (Auto) Baso % (Auto) Neut # (Auto) Lymph # (Auto) [place] # (Auto) Eos # (Auto) Baso # (Auto) Immature Gran # (Auto) PT INR APTT PTT Ratio LA PTT Screen Protein C Activity Protein S Activity Antithrombin III Activ Factor V Leiden Mutat Factor V Leiden Interp Sodium Potassium Chloride Carbon Dioxide Anion Gap BUN Creatinine Est Cr Clr Drug Dosing Est GFR ( Amer) Est GFR (Non-Af Amer) BUN/Creatinine Ratio Glucose POC Glucose Estimat Average Glucose Hemoglobin A1c Calcium Phosphorus Magnesium Total Bilirubin AST ALT Alkaline Phosphatase Troponin I High Sens Total Protein Albumin Globulin Albumin/Globulin Ratio Triglycerides Cholesterol LDL Cholesterol, Calc VLDL Cholesterol, Calc HDL Cholesterol Cholesterol/HDL Ratio Vitamin B12 467 Homocysteine Procalcitonin HCG, Qual Urine Test Negative Beta-2-GPI IgG Ab Beta-2-GPI IgM Ab Anti-Cardiolipin IgG Ab Anti-Cardiolipin IgM Ab Lyme Disease IgG Ab Negative Lyme Disease IgM Ab Negative SARS-CoV-2, RNA, NAAT Prothrombin Gene Mutate Prothromb Gene Comment 12/15/22 12/15/22 12/15/22 14:39 14:39 14:39 WBC RBC Hgb Hct MCV MCH MCHC RDW Std Deviation RDW Coeff of [place] Plt Count MPV Immature Gran % (Auto) Neut % (Auto) Lymph % (Auto) [place] % (Auto) Eos % (Auto) Baso % (Auto) Neut # (Auto) Lymph # (Auto) [place] # (Auto) Eos # (Auto) Baso # (Auto) Immature Gran # (Auto) PT INR APTT PTT Ratio LA PTT Screen Pending Protein C Activity Pending Protein S Activity Pending Antithrombin III Activ Pending Factor V Leiden Mutat Pending Factor V Leiden Interp Pending Sodium Potassium Chloride Carbon Dioxide Anion Gap BUN Creatinine Est Cr Clr Drug Dosing Est GFR ( Amer) Est GFR (Non-Af Amer) BUN/Creatinine Ratio Glucose POC Glucose Estimat Average Glucose Hemoglobin A1c Calcium Phosphorus Magnesium Total Bilirubin AST ALT Alkaline Phosphatase Troponin I High Sens Total Protein Albumin Globulin Albumin/Globulin Ratio Triglycerides Cholesterol LDL Cholesterol, Calc VLDL Cholesterol, Calc HDL Cholesterol Cholesterol/HDL Ratio Vitamin B12 Homocysteine Pending Procalcitonin HCG, Qual Urine Test Beta-2-GPI IgG Ab Pending Beta-2-GPI IgM Ab Pending Anti-Cardiolipin IgG Ab Pending Anti-Cardiolipin IgM Ab Pending Lyme Disease IgG Ab Lyme Disease IgM Ab SARS-CoV-2, RNA, NAAT Prothrombin Gene Mutate Pending Prothromb Gene Comment Pending Diagnostic Findings Chest X-Ray 12/14/22 16:07 XR chest 1V portable HISTORY: neuro deficit, acute stroke suspected COMPARISON: Chest 09/15/2017. FINDINGS: The lungs are clear. Cardiac silhouette is normal in size. No pleural effusions. No pneumothorax. IMPRESSION: No acute process. ACT 112: Negative or not required by law. Electronically signed by: Raheem Mercado M.D. 12/14/2022 4:[address] 12/14/22 16:[address] DOSE: 773.57 mGy.cm HISTORY: neuro deficit, acute stroke suspected TECHNIQUE: Multiaxial CT images of the head were performed without the use of intravenous contrast. Automated exposure control was utilized for this study. A dose lowering technique was utilized adhering to the principles of ALARA. Comparison: None. Findings: The paranasal sinuses and mastoid air cells are clear. The calvarium and skull base are intact. The ventricles and sulci are within normal limits. There is no mass, hematoma, midline shift, or acute infarct. Impression: No acute intracranial abnormality. ACT 112: Negative or not required by law. Electronically signed by: Raheem Mercado M.D. 12/14/2022 4:29 PM Head CTA 12/14/22 16:07 HEAD & NECK CTA HISTORY: neuro deficit, acute stroke suspected TECHNIQUE: Multiaxial CT images of the head were performed following the intravenous administration of contrast to evaluate the major cerebral vessels. Multiaxial CT images of the neck were also performed following the intravenous administration of contrast to evaluate the major cervical vessels. Maximum intensity projection images were also obtained. A dose lowering technique was utilized adhering to the principles of ALARA. COMPARISON: Head CT 12/14/2022. Head and neck MRA 06/17/2015. FINDINGS: There is no mass, hematoma, midline shift, or acute infarct. Visualized intracranial internal carotid arteries, distal vertebral arteries, and basilar artery are widely patent. There is no significant stenosis, occlusion, or aneurysm seen within the bilateral ACAs, MCAs, or claim examiner. Hypoplastic distal vertebral arteries, basilar arteries, and bilateral P1 segments. The bilateral claim examiner are primarily fed through the posterior communicating arteries. The major dural venous sinuses are patent. The aortic arch and proximal great vessels are widely patent. There is no significant stenosis, occlusion, or dissection identified within the bilateral common carotid, internal carotid, or vertebral arteries. A small area of patchy groundglass airspace opacities within the right upper lobe anteriorly. This may represent a low-grade pneumonitis. IMPRESSION: 1. No significant stenosis, occlusion, or aneurysm within the [place]. 2. No significant stenosis, occlusion, or dissection identified within the carotid or vertebral arteries. 3. A small area of patchy groundglass airspace opacities within the right upper lobe anteriorly. This may represent a low-grade pneumonitis. ACT 112: Negative or not required by law. Electronically signed by: Raheem Mercado M.D. 12/14/2022 4:35 PM Neck CTA 12/14/22 16:07 HEAD & NECK CTA HISTORY: neuro deficit, acute stroke suspected TECHNIQUE: Multiaxial CT images of the head were performed following the intravenous administration of contrast to evaluate the major cerebral vessels. Multiaxial CT images of the neck were also performed following the intravenous administration of contrast to evaluate the major cervical vessels. Maximum intensity projection images were also obtained. A dose lowering technique was utilized adhering to the principles of ALARA. COMPARISON: Head CT 12/14/2022. Head and neck MRA 06/17/2015. FINDINGS: There is no mass, hematoma, midline shift, or acute infarct. Visualized intracranial internal carotid arteries, distal vertebral arteries, and basilar artery are widely patent. There is no significant stenosis, occlusion, or aneurysm seen within the bilateral ACAs, MCAs, or claim examiner. Hypoplastic distal vertebral arteries, basilar arteries, and bilateral P1 segments. The bilateral claim examiner are primarily fed through the posterior communicating arteries. The major dural venous sinuses are patent. The aortic arch and proximal great vessels are widely patent. There is no significant stenosis, occlusion, or dissection identified within the bilateral common carotid, internal carotid, or vertebral arteries. A small area of patchy groundglass airspace opacities within the right upper lobe anteriorly. This may represent a low-grade pneumonitis. IMPRESSION: 1. No significant stenosis, occlusion, or aneurysm within the [place]. 2. No significant stenosis, occlusion, or dissection identified within the carotid or vertebral arteries. 3. A small area of patchy groundglass airspace opacities within the right upper lobe anteriorly. This may represent a low-grade pneumonitis. ACT 112: Negative or not required by law. Electronically signed by: Raheem Mercado M.D. 12/14/2022 4:35 PM Brain MRI 12/14/22 21:44 MRI OF THE BRAIN COMBO CLINICAL HISTORY: Strokelike symptoms. COMPARISON STUDY: CT of the brain dated 12/14/2022. MRI of the brain dated 06/17/2015. TECHNIQUE: MRI of the brain was performed utilizing various T1 and T2-weighted sequences in the axial, sagittal, and coronal planes. Contrast-enhanced sequences were acquired following the administration of 7.5 cc of Gadavist. FINDINGS: Brain parenchyma: There is no hemorrhage or mass effect. There is an indeterminant 4 mm focus of apparent restricted diffusion suggested involving the high right parietal cortex on image #19. No additional foci of restricted diffusion are identified. No enhancing mass lesion is identified on the postcontrast images. [place]-white matter differentiation is preserved. No extra- axial fluid collection is seen. The cerebellar tonsils are normal in configuration. Ventricles, sulci, and cisterns: Normal in configuration. Pituitary and sella: Unremarkable. Intracranial vasculature: Normal flow voids are maintained at the skull base. Orbits: The bony orbits are grossly intact. Orbital contents are normal in appearance. Sinuses and mastoids: Clear. Calvarium: Unremarkable. Cervical cord: Partially visualized cervical spinal cord is normal in morphology and signal intensity. IMPRESSION: 1. There is a 4 mm focus of questionable restricted diffusion versus artifact involving the high right parietal cortex. A punctate acute to subacute infarct is not excluded. 2. No additional foci of restricted diffusion are identified. 3. There is no hemorrhage, enhancing lesion, or mass effect. ACT 112: Negative or not required by law. Electronically signed by: Jasvir Crook M.D. 12/15/2022 8:02 AM Venous Doppler Study 12/15/22 13:06 ULTRASOUND BILATERAL LOWER EXTREMITY VENOUS CLINICAL HISTORY: Stroke. Patent foramen ovale. COMPARISON STUDY: No priors. TECHNIQUE: Real-time, grayscale, and color Doppler sonography of the deep veins of the right and left lower extremity was performed from the inguinal crease to the calf. Compression and augmentation were utilized. FINDINGS: There is no sonographic evidence of deep venous thrombosis identified in the right or left lower extremity. The common femoral, superficial femoral, and popliteal veins are patent and normally compressible bilaterally. The greater saphenous vein and the profunda femoris vein at the junction with the common femoral vein are clear in both legs. The visualized calf veins are patent bilaterally. IMPRESSION: There is no sonographic evidence of deep venous thrombosis identified in the right or left lower extremity. ACT 112: Negative or not required by law. Electronically signed by: Jasvir Crook M.D. 12/15/2022 2:12 PM Venous Doppler Study 12/15/22 13:07 BILATERAL UPPER EXTREMITY VENOUS DOPPLER ULTRASOUND CLINICAL HISTORY: Stroke,PFO COMPARISON STUDY: No previous studies for comparison. TECHNIQUE: Sonography of the venous systems of both upper extremities was performed. FINDINGS: No deep venous thrombus is identified within the upper extremities. The internal jugular, subclavian, axillary, brachial, radial, ulnar, cephalic and basilic veins are patent. IMPRESSION: No deep venous thrombus within the bilateral upper extremities. ACT 112: Negative or not required by law. Electronically signed by: Benny Tovar M.D. 12/15/2022 2:54 PM TTE--Nl EF, small PFO. No other abnormalities.
--- NOTE | 2022-12-15 17:33 | Hospitalist Progress Note ---
Date of Service December 15, 2022 Assessment & Plan (1) Stroke-like symptoms: Plan: Strokelike symptoms TIA Vs Complicated Migraine Not a candidate for tPA--Not Indicated Admit in Tele --CT head:No acute intracranial abnormality. --CTA Head/Neck: No significant stenosis, occlusion, or aneurysm within the koi of [place]. No significant stenosis, occlusion, or dissection identified within the carotid or vertebral arteries. A small area of patchy groundglass airspace opacities within the right upper lobe anteriorly. This may represent a low-grade pneumonitis. --MRI Brain:There is a 4 mm focus of questionable restricted diffusion versus artifact involving the high right parietal cortex. A punctate acute to subacute infarct is not excluded. No additional foci of restricted diffusion are identified. There is no hemorrhage, enhancing lesion, or mass effect. --ECHO: Normal left ventricular wall thickness. No regional wall motion abnormality. Left ventricle systolic function is normal. EF 55 to 60%. Left ventricular diastolic function is normal. No ASD. Cannot rule out small PFO. Possible interatrial shunt present. --Venous Doppler:There is no sonographic evidence of deep venous thrombosis identified in the right or left lower extremity. -- Repeat MRI brain pending -- Hypercoagulable work-up pending --HbA1c 5.7 --Total cholesterol 148, LDL 76, HDL 52 --Negative Lyme screen --Vitamin B12 467 --EEG pending Speech and swallow eval, PT/OT eval Continue aspirin, Lipitor for now Neuro checks Appreciate Neurology Input OCPs discontinued Further management based on TERESA, repeat MRI N.p.o. after midnight Needs 14-day Zio patch monitor arranged as outpatient Elevated troponin Rule out ACS Denies chest pain Reports dyspnea on exertion for 3 to 4 weeks Initial troponin: 164>146>135 EKG shows: Poor quality EKG. Normal sinus rhythm. Low voltage QRS. Left anterior fascicular block. Nonspecific ST-T wave changes. QTc 455. CXR: No acute process. ECHO as above On Aspirin, statin as above Appreciate cardiology Input Presyncope H/O vertigo, recurrent presyncope Gentle IV fluids Meclizine as needed Need ENT follow-up as outpatient Right upper lobe airspace opacity Incidental finding on imaging Denies any change in cough Attributes chronic intermittent cough due to GERD Procalcitonin < 0.05 Currently asymptomatic, no indication for antibiotics Will need repeat imaging as outpatient to monitor for resolution Mild hyponatremia Monitor sodium levels Received gentle IV fluids Resolved Vitamin B12 deficiency On vitamin B12 injections monthly Normal vitamin B12 levels chronic conditions: GERD--not on any meds obstructive sleep apnea--does not use CPAP Asthma--albuterol as needed Ocular migraine--Not on meds Right choroid fissure cyst Tubular adenoma of colon-as per records Fibroid uterus and ovarian cyst--on OCPs, follows with [facility] [employer] Discontinued OCPs as increased risk with possible stroke. Advised to follow-up with [facility] [employer] as outpatient for alternative management DVT Px: SCDs for now Code Status Full Code Admission and Anticipated Discharge Date Admission Date: December 14, 2022 Subjective Patient is seen and examined at bedside States feeling well today Offers no complaints Denies any recurrence of dysarthria, right facial droop, numbness Also denies any chest pain, dyspnea, dizziness, focal weakness Discussed with neurologist over the phone Review of Systems Review of Systems: All systems reviewed & are unremarkable except as noted in Subjective Physical Exam Physical Exam: Physical Exam: Vitals signs as noted above General Appearance:Moderately built and nourished, no apparent distress Head: normocephalic, Atraumatic Eyes: normal inspection, EOMI Neck: supple, Trachea midline Respiratory/Chest: Normal breath sounds, CTA, No accessory muscle use Cardiovascular: S1, S2, No murmur Abdomen/GI:Soft, Non tender, Bowel sounds present Extremities/Musculoskeletal:normal inspection, no edema Neurologic/Psych:AAOX3, grossly no focal neurological deficits Skin: normal color, warm Results & Data Results & Data ([facility]) Vital Signs (Past 12 Hours) Vital Signs Temp Pulse Pulse Resp BP BP Pulse Ox 12/15/22 15:52 36.8 C 69 18 109/74 98 12/15/22 11:21 36.8 C 73 18 99/68 L 95 12/15/22 10:23 60 12/15/22 07:44 36.7 C 76 17 116/74 96 O2 Del Method 12/15/22 15:52 Room Air 12/15/22 11:21 Room Air 12/15/22 10:23 12/15/22 07:44 Room Air Laboratory Results Short CBC 12/14/22 12/15/22 Range/Units 16:30 05:24 WBC 6.21 5.69 (4.8-10.8) K/ul Hgb 12.9 12.1 (12.0-16.0) g/dl Hct 37.6 35.2 L (37.0-47.0) % Plt Count 209 194 (130-400) K/uL [facility] 12/15/22 05:24 Sodium 138 Potassium 4.1 Chloride 110 H Carbon Dioxide 22 BUN 11 Creatinine 0.88 Glucose 74 Calcium 8.7
[2022-12-16] MEDS ORDERED: BENZOCAINE/TETRACAIN/BUTAM 50 APPLN/5 GM CAN EXT ONE (07:22)
[2022-12-16 07:50] LABS: Basophils # (auto) 0.04 K/uL (0-0.2); Basophils % (auto) 0.7 %; Eosinophils # (auto) 0.26 K/uL (0-0.50); Eosinophils % (auto) 4.5 %; Hematocrit (blood only) 38.4 % (37.0-47.0); Hemoglobin 12.8 g/dl (12.0-16.0); Immature Granulocytes # (auto) 0.01 K/uL (0.01-0.20); Immature Granulocytes % (auto) 0.2 %; Lymphocytes # (auto) 1.55 K/uL (1.2-3.4); Lymphocytes % (auto) 26.6 %; Mean Corpuscular Hemoglobin 29.7 pg (25.0-34.0); Mean Corpuscular Hgb Conc 33.3 g/dL (32.0-36.0); Mean Corpuscular Volume 89.1 fL (80.0-100.0); Mean Platelet Volume 9.9 fL (9.4-12.4); Monocytes # (auto) 0.53 K/uL (0.11-0.59); Monocytes % (auto) 9.1 %; Neutrophils # (auto) 3.43 K/uL (1.40-6.50); Neutrophils % (auto) 58.9 %; Platelet Count 213 K/uL (130-400); RDW Coefficient of Variation 12.6 % (11.5-14.5); RDW Standard Deviation 41.9 fL (36.4-46.3); Red Blood Count 4.31 M/uL (4.20-5.40); White Blood Count 5.82 K/ul (4.8-10.8)
--- NOTE | 2022-12-16 08:06 | Anesthesiology Consultation ---
Date of Service December 16, 2022 History Surgery Operation Date: 12/16/22 07:45 Proposed Procedures p Transesophageal Echo w/Anesthesia - Timothy Anderson DO Height/Weight Height: 5 ft 6.5 in Weight: 79.4 kg Allergies Allergy/AdvReac Type Severity Reaction Status Date / Time pseudoephedrine Allergy Mild PASSED OUT Verified 04/01/22 08:06 chlorhexidine Allergy Verified 04/01/22 08:06 Medications Home Medications Medication Instructions Recorded Confirmed Last Taken inhalational spacing device #1 ea 01/29/20 12/14/22 Unknown (Melissa Jin [facility] spacer) norethindrone acetate 1 mg-ethinyl 1 tab PO DAILY 04/01/22 12/14/22 Unknown estradiol 20 mcg tablet () albuterol sulfate 90 mcg/actuation 2 puff inhalation Q4 PRN shortness 12/14/22 12/14/22 Unknown aerosol inhaler (ProAir HFA) of breath or wheezing cyanocobalamin (vitamin B-12) 1,000 mcg IM Q28D 12/14/22 12/14/22 Unknown 1,000 mcg/mL injection solution Active Medications Generic Name Dose Route Start Last Admin Trade Name Freq PRN Reason Stop Dose Admin Aspirin 81 mg 12/15/22 09:00 12/15/22 09:11 Aspirin 81 Mg Ectab PO 01/14/23 08:59 81 mg DAILY AMARJIT Administration Atorvastatin Calcium 40 mg 12/15/22 09:00 12/15/22 09:11 Atorvastatin 40 Mg Tab PO 01/14/23 08:59 40 mg QAM AMARJIT Administration Miscellaneous 1 each 12/15/22 00:00 12/15/22 09:14 June12/02 (21) - Order Awaiting Action N/A 01/14/23 00:00 Not Given QS AMARJIT Past Medical History Medical History Anxiety Cervical high risk HPV (human papillomavirus) test positive Dysfunctional uterine bleeding Female infertility History of syncope HX OF EPISODES OF SYNCOPE, LAST EPISODE 8 MONTHS AGO. PT STATES IT HAS OCCURED WITH "NO KNOWN TRIGGER". PT IS A RUNNER AND HR TENDS TO BE LOW 38. PT STATES THAT NO FURTHER WORK UP WAS DONE. Menopausal and perimenopausal disorder Menorrhagia Mononucleosis Oral contraceptive pill surveillance Sleep apnea Uterine leiomyoma Vitamin D deficiency Past Family History Family History Father Myocardial infarction Prostate cancer Lung cancer Congestive heart failure (CHF) Mother Leukemia Hypertension Denies family history of Ovarian cancer Breast cancer Colorectal cancer Past Surgical History Surgical History H/O colonoscopy 2018, change in habits, sigmoid polyp. H/O hand surgery H/O LEEP in the 90s. History of appendectomy History of esophagogastroduodenoscopy (EGD) 2018 History of myomectomy Social History Smoking Status: Never smoker Do You Dip or Chew Tobacco: No Hx Alcohol Use: No Alcohol type: wine alcohol intake frequency: a few times a month Hx Substance Use: No substance use type: does not use Physical Exam Vital Signs Last Vital Signs Temp 36.5 C 12/16/22 02:38 Pulse 64 12/16/22 07:35 Resp 16 12/16/22 07:20 BP 113/53 L 12/16/22 07:20 Pulse Ox 96 12/16/22 07:20 O2 Del Method 12/16/22 07:20 Testing Laboratory Results 12/16/22 06:43 PT 10.3 Seconds (9.0-12.0) 12/14/22 16:30 INR 1.0 (0.9-1.1) 12/14/22 16:30 APTT 21.9 Seconds (21.0-31.0) 12/14/22 16:30 Hemoglobin A1c 5.7 % (4.5-5.6) H 12/15/22 05:24 Urine Test Negative (Negative) 12/15/22 06:16 12/15/22 06:16 Urine Test Negative Chest X-Ray Date: 12/14/22
[2022-12-16] MEDS ORDERED: PROPOFOL IV EMULSION 10 MG/ML 20 ML VIAL IV ONE (08:08)
[2022-12-16] MEDS ORDERED: LIDOCAINE 2% MPF LOCAL 5 ML VIAL INFIL ONE (08:08)
--- NOTE | 2022-12-16 08:09 | Anesthesiology Consultation ---
Date of Service December 16, 2022 Assessment & Plan (1) Encounter for pre-operative examination: Chart Review Chart Review: Acceptable Risk for Surgery, Patient NOT seen in Pre Admission Testing and entry specialists initiated Consults Requested none History Surgery Operation Date: 12/16/22 07:45 Proposed Procedures p Transesophageal Echo w/Anesthesia - Timothy Anderson DO Height/Weight Height: 5 ft 6.5 in Weight: 79.4 kg Allergies Allergy/AdvReac Type Severity Reaction Status Date / Time pseudoephedrine Allergy Mild PASSED OUT Verified 04/01/22 08:06 chlorhexidine Allergy Verified 04/01/22 08:06 Medications Home Medications Medication Instructions Recorded Confirmed Last Taken inhalational spacing device #1 ea 01/29/20 12/14/22 Unknown (Melissa Jin [facility] spacer) norethindrone acetate 1 mg-ethinyl 1 tab PO DAILY 04/01/22 12/14/22 Unknown estradiol 20 mcg tablet () albuterol sulfate 90 mcg/actuation 2 puff inhalation Q4 PRN shortness 12/14/22 12/14/22 Unknown aerosol inhaler (ProAir HFA) of breath or wheezing cyanocobalamin (vitamin B-12) 1,000 mcg IM Q28D 12/14/22 12/14/22 Unknown 1,000 mcg/mL injection solution Active Medications Generic Name Dose Route Start Last Admin Trade Name Freq PRN Reason Stop Dose Admin Aspirin 81 mg 12/15/22 09:00 12/15/22 09:11 Aspirin 81 Mg Ectab PO 01/14/23 08:59 81 mg DAILY AMARJIT Administration Atorvastatin Calcium 40 mg 12/15/22 09:00 12/15/22 09:11 Atorvastatin 40 Mg Tab PO 01/14/23 08:59 40 mg QAM AMARJIT Administration Miscellaneous 1 each 12/15/22 00:00 12/15/22 09:14 Junel 12/02 (21) - Order Awaiting Action N/A 01/14/23 00:00 Not Given QS AMARJIT Past Medical History Medical History Anxiety Cervical high risk HPV (human papillomavirus) test positive Dysfunctional uterine bleeding Encounter for pre-operative examination Female infertility History of syncope HX OF EPISODES OF SYNCOPE, LAST EPISODE 8 MONTHS AGO. PT STATES IT HAS OCCURED WITH "NO KNOWN TRIGGER". PT IS A RUNNER AND HR TENDS TO BE LOW 38. PT STATES THAT NO FURTHER WORK UP WAS DONE. Menopausal and perimenopausal disorder Menorrhagia Mononucleosis Oral contraceptive pill surveillance Sleep apnea Uterine leiomyoma Vitamin D deficiency Past Family History Family History Father Myocardial infarction Prostate cancer Lung cancer Congestive heart failure (CHF) Mother Leukemia Hypertension Denies family history of Ovarian cancer Breast cancer Colorectal cancer Past Surgical History Surgical History H/O colonoscopy 2018, change in habits, sigmoid polyp. H/O hand surgery H/O LEEP in the . History of appendectomy History of esophagogastroduodenoscopy (EGD) 2018 History of myomectomy Social History Smoking Status: Never smoker Do You Dip or Chew Tobacco: No Hx Alcohol Use: No Alcohol type: wine alcohol intake frequency: a few times a month Hx Substance Use: No substance use type: does not use Physical Exam Vital Signs Last Vital Signs Temp 36.5 C 12/16/22 02:38 Pulse 64 12/16/22 07:35 Resp 16 12/16/22 07:20 BP 113/53 L 12/16/22 07:20 Pulse Ox 96 12/16/22 07:20 O2 Del Method 12/16/22 07:20 Testing Laboratory Results 12/16/22 06:43 PT 10.3 Seconds (9.0-12.0) 12/14/22 16:30 INR 1.0 (0.9-1.1) 12/14/22 16:30 APTT 21.9 Seconds (21.0-31.0) 12/14/22 16:30 Hemoglobin A1c 5.7 % (4.5-5.6) H 12/15/22 05:24 Urine Test Negative (Negative) 12/15/22 06:16 12/15/22 06:16 Urine Test Negative Electrocardiogram Date: 12/16/22 Findings: + NSR @ (74) left axis deviation, low voltage, inferior infarct. Chest X-Ray Date: 12/14/22 Findings: + NAD Echocardiogram Date: 12/15/22 EF: 55-60 LV Function: normal RWMA: + none Possible interatrial shunt
--- NOTE | 2022-12-16 08:12 | History & Physical Bridge Note ---
Date of Service December 16, 2022 History & Physical Bridge Note I have examined the patient, reviewed the History & Physical and in the interval since the performance of the History & Physical I have noted the following changes of clinical significance: no changes noted
--- NOTE | 2022-12-16 08:29 | Magnetic Resonance Report ---
MRI OF THE BRAIN WITHOUT CONTRAST CLINICAL HISTORY: recent abnormal MRI. Repeat MRI w only DWI/ADC COMPARISON STUDY: Head CT, CTA of the head and MRI of the brain December 14, 2022. TECHNIQUE: Utilizing a 1.5 Alivia magnet and dedicated coil, diffusion-weighted imaging was performed. No additional sequences were requested at this time. FINDINGS: There are a few tiny foci of restricted diffusion within the right frontal and parietal lob es. These measure up to 4 mm. Conspicuity has slightly increased since prior exam although this is li álvaro technical. There is no mass effect. The largest focus is hypointense on the ADC map. No addition al foci of restricted diffusion are present. There is no hemorrhage. Ventricular system is normal. Ba steffi cisterns are patent. There are no extra axial collections. IMPRESSION: Several tiny acute infarcts within the right frontal and parietal lobes. Increase in con spicuity since prior MRI is likely technical. ACT 112: Negative or not required by law. Electronically signed by: Benny Tovar M.D. 12/16/2022 8:28 AM
[2022-12-16 08:51] LABS: BUN Creatinine Ratio 16.2 (10-20); Calcium 9.7 mg/dl (8.5-10.1); Creatinine Clr Calc Pharmacy 72.2 ml/min; Est GFR (African American) 76.5 ml/min; Magnesium 1.9 mg/dl (1.7-2.4); Potassium 4.2 mmol/L (3.5-5.1)
--- NOTE | 2022-12-16 09:01 | Post Operative Brief Note ---
Cardiology Brief Post Op Date of Surgery December 16, 2022 Pre & Post Diagnosis Operation Date: 12/16/22 07:45 Preprocedure diagnosis: Strokelike symptoms, assess for cardiac source of cerebral embolism Post procedure diagnosis: Normal transesophageal echocardiogram, no cardiac source of embolism identified, intact interatrial septum Procedure Transesophageal echocardiogram procedure: After informed consent was obtained and a timeout was performed, the patient was sedated with the assistance of the anesthesia service. The valvular structure and function was normal. LVEF was normal. Left atrial appendage was without thrombus. The interatrial septum was intact without evidence of atrial septal defect or PFO as assessed by 2D imaging, color flow Doppler, and with the administration of agitated saline contrast. Floor Finisher Timothy Anderson DO Metaphysician Annie Medina, RCS Estimated Blood Loss 0 Findings Consistent with Post-Op Diagnosis Anesthesia Type MAC Complications none
--- NOTE | 2022-12-16 09:10 | Cardiology Progress Note ---
Date of Service December 16, 2022 Assessment & Plan (1) Stroke-like symptoms: (2) Elevated troponin: Plan - A transesophageal echocardiogram was performed this morning for further assessment of cardiac source of embolism. The left ventricular ejection fraction is normal. The valvular structure and function is normal. The left atrial appendage is well visualized with no evidence of thrombus. The interatrial septum was well visualized, and was intact as assessed by 2D, color-flow Doppler, and with the administration of agitated saline contrast with manual abdominal pressure applied. -Continue aspirin 81 mg daily. -LDL cholesterol= 76 mg/dL. Reduce atorvastatin to 10 mg daily -Proceed with ambulatory hall monitor to assess for occult atrial fibrillation.Will arrange for placement in office on Monday. -Hypercoagulable laboratory work-up drawn. -Patient to remain off of estrogen oral contraceptive. -Neurology input noted and appreciated. Await further follow-up advice. Admission and Anticipated Discharge Date Admission Date: December 15, 2022 Subjective Patient seen in cardiology follow-up prior to, during, and post transesophageal echocardiogram. Patient reports no events overnight last night. Telemetry reveals sinus rhythm. Physical Exam Physical Exam: Temp Pulse Resp BP Pulse Ox O2 Del Method 36.5 C 99 H 13 95/45 L 99 12/16/22 02:38 12/16/22 08:55 12/16/22 08:55 12/16/22 08:55 12/16/22 08:55 12/16/22 08:55 Constitutional: WD/WN, vitals as above Respiratory: normal respiratory effort, lungs clear to auscultation Cardiovascular: RRR, no murmur, no edema Gastrointestinal (Abdomen): normal bowel sounds, soft, nontender, no hepatosplenomegaly Neurologic: moves all extremities; no focal motor deficits and not confused Results & Data ([facility]) Vital Signs (Past 12 Hours) Vital Signs Temp Pulse Pulse Resp BP BP Pulse Ox 12/16/22 08:55 99 H 13 95/45 L 99 12/16/22 07:35 64 12/16/22 07:20 75 16 113/53 L 96 12/16/22 02:38 36.5 C 67 16 105/68 97 12/15/22 23:05 36.8 C 64 18 107/68 97 O2 Del Method 12/16/22 08:55 Room Air 12/16/22 07:35 12/16/22 07:20 Room Air 12/16/22 02:38 Room Air 12/15/22 23:05 Room Air Laboratory Results High-sensitivity troponin: 164--> 146--> 135 pg/ml. Lipid panel 12/15/2022: Triglycerides 101 Total cholesterol 148 LDL 76 HDL 52 Exercise stress echo 03/09/2021 as an outpatient Interpretation Summary The stress echo is negative for inducible ischemia. Exercise capacity is above average . Resting Study: The qualitative LV ejection fraction is 55-59% (normal). The left ventricular diastolic function is normal. No significant valvular disease is present. Repeat MRI of the brain without contrast 12/15/2022: FINDINGS: There are a few tiny foci of restricted diffusion within the right frontal and parietal lobes. These measure up to 4 mm. Conspicuity has slightly increased since prior exam although this is likely technical. There is no mass effect. The largest focus is hypointense on the ADC map. No additional foci of restricted diffusion are present. There is no hemorrhage. Ventricular system is normal. Basal cisterns are patent. There are no extra axial collections. IMPRESSION: Several tiny acute infarcts within the right frontal and parietal lobes. Increase in conspicuity since prior MRI is likely technical. Lower extremity venous duplex, upper extremity venous duplex: No DVT
[2022-12-16] MEDS: ASPIRIN 81 MG ECTAB PO SCH (09:48)
[2022-12-16] MEDS: ATORVASTATIN 40 MG TAB PO SCH (10:04)
--- NOTE | 2022-12-16 10:25 | Anesthesiology Progress Note ---
Date of Service December 16, 2022 Anesthesia Post Procedure Vital Signs Vital Signs: Temp Pulse Pulse Resp BP BP Pulse Ox 12/16/22 09:53 36.7 C 65 16 104/69 97 12/16/22 09:15 67 18 105/59 L 96 12/16/22 09:00 73 16 100/58 L 99 12/16/22 08:55 99 H 13 95/45 L 99 12/16/22 07:35 64 12/16/22 07:20 75 16 113/53 L 96 12/16/22 02:38 36.5 C 67 16 105/68 97 12/15/22 23:05 36.8 C 64 18 107/68 97 12/15/22 19:43 36.9 C 76 18 108/68 98 12/15/22 15:52 36.8 C 69 18 109/74 98 12/15/22 11:21 36.8 C 73 18 99/68 L 95 O2 Del Method 12/16/22 09:53 Room Air 12/16/22 09:15 Room Air 12/16/22 09:00 Room Air 12/16/22 08:55 Room Air 12/16/22 07:35 12/16/22 07:20 Room Air 12/16/22 02:38 Room Air 12/15/22 23:05 Room Air 12/15/22 19:43 Room Air 12/15/22 15:52 Room Air 12/15/22 11:21 Room Air Pain Intensity Right Head: Pain Intensity: 2 Transfer of Care Handoff Completed per policy Notes Mental Status: alert / awake / arousable and participated in evaluation Patient Amnestic to Procedure: Yes Nausea / Vomiting: adequately controlled Pain: adequately controlled Airway Patency, RR, SpO2: stable & adequate BP & HR: stable & adequate Hydration State: stable & adequate Anesthetic Complications: no major complications apparent and Pt Satisfied with anesthetic care
--- NOTE | 2022-12-16 12:00 | Electrocardiogram Report ---
Test Reason : Blood Pressure : / mmHG Vent. Rate : 074 BPM Atrial Rate : 074 BPM P-R Int : 192 ms QRS Dur : 080 ms QT Int : 432 ms P-R-T Axes : 058 -38 -24 degrees QTc Int : 479 ms Poor data quality, interpretation may be adversely affected Sinus rhythm with occasional Premature ventricular complexes Left axis deviation Low voltage QRS Inferior infarct (cited on or before 14-DEC-2022) Abnormal ECG When compared with ECG of 15-DEC-2022 04:55, Premature ventricular complexes are now Present Minimal criteria for Anterior infarct are no longer Present Confirmed by Avery Riggins ([id number]) on 12/16/2022 12:00:05 PM Referred By: Alfredo Deng Confirmed By:Avery Riggins
--- NOTE | 2022-12-16 15:09 | Electroencephalogram ---
EEG Procedure Note Date of Service December 16, 2022 Start / End Times Start Time: 10:43 End Time: 11:03 Referring Physician Natali Ghotra MD History Episode of facial numbness, droop, dizziness and headache. Home Medication List Medication Instructions Recorded Confirmed Type inhalational spacing device #1 ea 01/29/20 12/14/22 Rx (OptiChamber Annabel C spacer) norethindrone acetate 1 mg-ethinyl 1 tab PO DAILY 04/01/22 12/14/22 History estradiol 20 mcg tablet () albuterol sulfate 90 mcg/actuation 2 puff inhalation Q4 PRN shortness 12/14/22 12/14/22 History aerosol inhaler (ProAir HFA) of breath or wheezing cyanocobalamin (vitamin B-12) 1,000 mcg IM Q28D 12/14/22 12/14/22 History 1,000 mcg/mL injection solution Inpatient Medication List Aspirin (Aspirin 81 Mg Ectab) 81 mg PO DAILY [facility] Stop: 01/14/23 08:59 Last Admin: 12/16/22 09:48 Dose: 81 mg Documented By: Admin: 12/15/22 09:11 Dose: 81 mg Documented By: ANIKET Miscellaneous (12/02 () - Order Awaiting Action) 1 each N/A QS [facility] Stop: 01/14/23 00:00 Last Admin: 12/15/22 09:14 Dose: Not Given Documented By: Admin: 12/14/22 23:24 Dose: Not Given Documented By: ANA Discontinued Medications Aspirin (Aspirin Chew 324 Mg) 324 mg PO NOW STA Stop: 12/14/22 17:42 Last Admin: 12/14/22 20:50 Dose: 324 mg Documented By: CURTIS Aspirin (Aspirin Chew 324 Mg) Confirm Administered Dose 324 mg .ROUTE .STK-MED ONE Stop: 12/14/22 20:50 Last Admin: 12/14/22 20:51 Dose: Not Given Documented By: CURTIS Atorvastatin Calcium (Atorvastatin 40 Mg Tab) 40 mg PO QAM [facility] Stop: 01/14/23 08:59 Last Admin: 12/16/22 10:04 Dose: Not Given Documented By: Admin: 12/15/22 09:11 Dose: 40 mg Documented By: ANIKET Benzocaine/Butamben/Tetracaine HCl (Benzocaine/Tetracain/Butam 50 Appln/5 Gm Can) Confirm Administered Dose 50 appln EXT .STK-MED ONE Stop: 12/16/22 07:23 Last Admin: 12/16/22 09:50 Dose: Not Given Documented By: MARCELL Gadobutrol (Gadobutrol 65ml Vial) 7.5 ml IV ONCE ONE Stop: 12/14/22 22:52 Last Admin: 12/14/22 22:52 Dose: 7.5 ml Documented By: MARY Sodium Chloride (Nss 1000ml) 1,000 mls @ 100 mls/hr IV .Q10H ONE Stop: 12/15/22 07:59 Last Infusion: 12/15/22 08:57 Dose: 0 mls/hr Documented By: Admin: 12/14/22 23:19 Dose: 100 mls/hr Documented By: ANA Ioversol (Optiray 320 500ml) 116 ml IV ONCE ONE Stop: 12/14/22 16:17 Last Admin: 12/14/22 16:22 Dose: 116 ml Documented By: DENEEN Lidocaine HCl (Lidocaine 2% Mpf Local 5 Ml Vial) Confirm Administered Dose 5 ml INFIL .STK-MED ONE Stop: 12/16/22 08:09 Last Admin: 12/16/22 09:50 Dose: Not Given Documented By: MARCELL Propofol (Propofol Iv Emulsion 10 Mg/Ml 20 Ml Vial) Confirm Administered Dose 600 mg IV .STK-MED ONE Stop: 12/16/22 08:09 Last Admin: 12/16/22 09:50 Dose: Not Given Documented By: MARCELL Description This is a 21 electrode EEG with a single channel dedicated to limited EKG. The electrodes were placed in accordance with the International 10-20 system. Interpretation Background activity shows good organization without focal slowing or asymmetry. There is 40 to 50 V, 10 Hz posterior activity, attenuates with eye opening bilaterally. Photic stimulations induce posterior driving responses bilaterally. Hyperventilation does not induce buildup slowing responses or abnormal discharges. Sleep is not captured during this recording. There are no electrographic seizures, epileptogenic discharges, or other abnormal activity. Impression: This EEG, recorded in wakefulness only, is normal. There is no electrographic seizures or epileptogenic discharge. Clinical correlation is suggested.
--- NOTE | 2022-12-16 15:11 | Hospitalist Progress Note ---
Date of Service December 16, 2022 Assessment & Plan (1) Stroke-like symptoms: Plan: Acute CVA-POA Not a candidate for tPA--Not Indicated --CT head:No acute intracranial abnormality. --CTA Head/Neck: No significant stenosis, occlusion, or aneurysm within the [place]. No significant stenosis, occlusion, or dissection identified within the carotid or vertebral arteries. A small area of patchy groundglass airspace opacities within the right upper lobe anteriorly. This may represent a low-grade pneumonitis. --MRI Brain:There is a 4 mm focus of questionable restricted diffusion versus artifact involving the high right parietal cortex. A punctate acute to subacute infarct is not excluded. No additional foci of restricted diffusion are identified. There is no hemorrhage, enhancing lesion, or mass effect. --ECHO: Normal left ventricular wall thickness. No regional wall motion abnormality. Left ventricle systolic function is normal. EF 55 to 60%. Left ventricular diastolic function is normal. No ASD. Cannot rule out small PFO. Possible interatrial shunt present. --Venous Doppler:There is no sonographic evidence of deep venous thrombosis identified in the right or left lower extremity. -- Repeat MRI:Several tiny acute infarcts within the right frontal and parietal lobes. Increase in conspicuity since prior MRI is likely technical. -TERESA:The left ventricular ejection fraction is normal. The valvular structure and function is normal. The left atrial appendage is well visualized with no evidence of thrombus. The interatrial septum was well visualized, and was intact as assessed by 2D, color-flow Doppler, and with the administration of agitated saline contrast with manual abdominal pressure applied. -- Hypercoagulable work-up pending --HbA1c 5.7 --Total cholesterol 148, LDL 76, HDL 52 --Negative Lyme screen --Vitamin B12 467 --EEG :This EEG, recorded in wakefulness only, is normal. There is no electrographic seizures or epileptogenic discharge. Clinical correlation is suggested. Speech and swallow eval, PT/OT eval Continue aspirin, Lipitor Neuro checks Appreciate Neurology Input OCPs discontinued Needs 14-day Zio patch monitor arranged as outpatient Needs follow-up with neurology, cardiology upon discharge Elevated troponin Rule out ACS Denies chest pain Reports dyspnea on exertion for 3 to 4 weeks Initial troponin: 164>146>135 EKG shows: Poor quality EKG. Normal sinus rhythm. Low voltage QRS. Left anterior fascicular block. Nonspecific ST-T wave changes. QTc 455. CXR: No acute process. ECHO as above On Aspirin, statin as above Appreciate cardiology Input Presyncope H/O vertigo, recurrent presyncope Gentle IV fluids Meclizine as needed Advised to follow up with ENT as outpatient Right upper lobe airspace opacity Incidental finding on imaging Denies any change in cough Attributes chronic intermittent cough due to GERD Procalcitonin < 0.05 Currently asymptomatic, no indication for antibiotics Will need repeat imaging as outpatient to monitor for resolution Mild hyponatremia Monitor sodium levels Received gentle IV fluids Resolved Vitamin B12 deficiency On vitamin B12 injections monthly Normal vitamin B12 levels chronic conditions: GERD--not on any meds obstructive sleep apnea--does not use CPAP Asthma--albuterol as needed Ocular migraine--Not on meds Right choroid fissure cyst Tubular adenoma of colon-as per records Fibroid uterus and ovarian cyst--on OCPs, follows with CONSULTING MANAGER Discontinued OCPs as increased risk with possible stroke. Advised to follow-up with CONSULTING MANAGER as outpatient for alternative management DVT Px: SCDs for now Code Status Full Code Disposition Home Admission and Anticipated Discharge Date Admission Date: December 15, 2022 Subjective Patient is seen and examined at bedside States having right upper lip numbness No other complaints Getting prepared for EEG during my encounter No recurrence of dysarthria, right facial droop, numbness Denies any chest pain, dyspnea, dizziness, focal weakness Had TERESA earlier today Review of Systems Review of Systems: All systems reviewed & are unremarkable except as noted in Subjective Physical Exam Physical Exam: Physical Exam: Vitals signs as noted above General Appearance:Moderately built and nourished, no apparent distress Head: normocephalic, Atraumatic Eyes: normal inspection, EOMI Neck: supple, Trachea midline Respiratory/Chest: Normal breath sounds, CTA, No accessory muscle use Cardiovascular: S1, S2, No murmur Abdomen/GI:Soft, Non tender, Bowel sounds present Extremities/Musculoskeletal:normal inspection, no edema Neurologic/Psych:AAOX3, grossly no focal neurological deficits Skin: normal color, warm Results & Data Results & Data ([facility]) Vital Signs (Past 12 Hours) Vital Signs Temp Pulse Pulse Resp BP BP Pulse Ox 12/16/22 11:41 36.6 C 78 16 111/51 L 99 12/16/22 09:53 36.7 C 65 16 104/69 97 12/16/22 09:15 67 18 105/59 L 96 12/16/22 09:00 73 16 100/58 L 99 12/16/22 08:55 99 H 13 95/45 L 99 12/16/22 07:35 64 12/16/22 07:20 75 16 113/53 L 96 O2 Del Method 12/16/22 11:41 Room Air 12/16/22 09:53 Room Air 12/16/22 09:15 Room Air 12/16/22 09:00 Room Air 12/16/22 08:55 Room Air 12/16/22 07:35 12/16/22 07:20 Room Air Laboratory Results Short CBC 12/16/22 Range/Units 06:43 WBC 5.82 (4.8-10.8) K/ul Hgb 12.8 (12.0-16.0) g/dl Hct 38.4 (37.0-47.0) % Plt Count 213 (130-400) K/uL BMP 12/16/22 06:43 Sodium 139 Potassium 4.2 Chloride 109 H Carbon Dioxide 22 BUN 16 Creatinine 0.99 Glucose 87 Calcium 9.7
--- NOTE | 2022-12-16 15:23 | Neurology Progress Note ---
Date of Service December 16, 2022 Assessment & Plan (1) Stroke-like symptoms: Plan: Impression: The patient presented with sudden onset, right facial droop, numbness, blurred vision, ear ache, which resolved mostly in few minutes. There was no following headache although the patient felt short lasting ear ache and occipital pain. She was diagnosed with ocular migraine. Current presentation is suggestive of complicated migraine, however, brain MRI showed right posterior frontal cortical diffusion restriction which was suggestive acute/subacute ischemic stroke. Repeat MRI DWI/ADC part showed multifocal small right MCA territory lesions with diffusion restriction, highly suggestive of embolic stroke. TERESA is negative for PFO or other pathology. Hypercoagulable state w/u and bed bug exterminator cardiac rhythm monitoring are indicated. Plan/recommendations: We will start the patient on Eliquis 5 mg BID and will stop aspirin. Continue on Lipitor 10 mg qhs. Hypercoagulable state work-up.--pending results Estrogen containing pills might increase coagulability and risk of cerebrovascular accident and should be stopped. Outpatient neurology clinic follow-up, for CVA, and migraine equivalent symptoms. The patient would like to follow Dr. Ferguson. Please make an appointment with neurology clinic in few wks. --The patient is neurologically stable to discharge home. I do recommend one week medical excuse from work. (2) Elevated troponin: Plan: Impression: Cardiology is on board. (3) PFO (patent foramen ovale): Plan: Impression: Transthoracic echocardiogram showed probably small PFO. However TERESA is negative for PFO or other abnormality. (4) Abnormal brain MRI: Plan: Impression: As seen above (5) Choroid cyst: Plan: Impression: Prior brain MRI with and without contrast showed small choroid fissure cyst, which is an incidental finding. The patient has an appointment with outpatient neurosurgery. Recent symptoms are not related to choroid cyst. Admission and Anticipated Discharge Date Admission Date: December 15, 2022 Subjective The patient has been symptom-free since admission. Yesterday slight right lower facial numbness has been improved as well. The patient had transesophageal echocardiogram, which was unremarkable. We repeated brain MRI with diffusion- weighted images, which showed additional, multiple, small right MCA territory spots with diffusion restriction, highly suggestive of embolic stroke. MRI abnormality is still cannot explain the patient is a recent neurological symptoms including right facial droop, numbness, unusual earache and occipital headache, and dizziness. There is a possibility that acute stroke triggered a complicated migraine which caused above-mentioned symptoms. Hypercoagulable state work-up was ordered and pending results. Telemetry monitoring has been showing sinus rhythm so far. EEG is unremarkable. As mentioned before, CT angiogram of head and neck, including proximal arteries, and aortic arch look normal. All the test results including repeat MRI findings are fully explained to patient. The patient is in agreement with starting on anticoagulation. Potential risk and benefits, and indication of anticoagulation are fully explained to patient. The patient is in agreement with stopping Junel or any other hormonal supplements. Review of Systems Review of Systems: All systems reviewed & are unremarkable except as noted in Subjective Physical Exam Physical Exam: General Examination: Constitutional: Well developed person in no acute distress. HENT: Normal exam with inspection. CV: Hearth rhythm is regular. Neck: Supple, no carotid bruits. Lungs: Non-labored and comfortable breathing. Abdomen: Soft, non-tender, non-distended. Skin: No rash or ecchymosis. Extremities: No edema or cyanosis NEUROLOGICAL EXAMINATION: Mental Status: Alert and oriented to place, person and time. Cranial Nerves: II-XII are intact. No nystagmus. Funduscopy: Normal looking optic discs. Motor: 5/5 in all extremities without asymmetry. Tone: Normal without spasticity or rigidity. Sensory: Intact to all sensory modalities. Coordination: No dysmetria with FTN testing. Speech: Fluent. Comprehension is intact. Gait: Normal. No ataxia or abnormal walking pattern. DTRs: 2+ all. No Babinsky Musculoskeletal: Normal muscle bulk, no atrophy. Results & Data ([facility]) Vital Signs (Past 12 Hours) Vital Signs Temp Pulse Pulse Resp BP BP Pulse Ox 12/16/22 11:41 36.6 C 78 16 111/51 L 99 12/16/22 09:53 36.7 C 65 16 104/69 97 12/16/22 09:15 67 18 105/59 L 96 12/16/22 09:00 73 16 100/58 L 99 12/16/22 08:55 99 H 13 95/45 L 99 12/16/22 07:35 64 12/16/22 07:20 75 16 113/53 L 96 O2 Del Method 12/16/22 11:41 Room Air 12/16/22 09:53 Room Air 12/16/22 09:15 Room Air 12/16/22 09:00 Room Air 12/16/22 08:55 Room Air 12/16/22 07:35 12/16/22 07:20 Room Air Laboratory Results Laboratory Results - last 24 hr 12/16/22 12/16/22 06:43 06:43 WBC 5.82 RBC 4.31 Hgb 12.8 Hct 38.4 MCV 89.1 MCH 29.7 MCHC 33.3 RDW Std Deviation 41.9 RDW Coeff of [place] 12.6 Plt Count 213 MPV 9.9 Immature Gran % (Auto) 0.2 Neut % (Auto) 58.9 Lymph % (Auto) 26.6 [place] % (Auto) 9.1 Eos % (Auto) 4.5 Baso % (Auto) 0.7 Neut # (Auto) 3.43 Lymph # (Auto) 1.55 [place] # (Auto) 0.53 Eos # (Auto) 0.26 Baso # (Auto) 0.04 Immature Gran # (Auto) 0.01 Sodium 139 Potassium 4.2 Chloride 109 H Carbon Dioxide 22 Anion Gap 8 BUN 16 Creatinine 0.99 Est Cr Clr Drug Dosing 72.2 Est GFR ( Amer) 76.5 Est GFR (Non-Af Amer) 66.0 BUN/Creatinine Ratio 16.2 Glucose 87 Calcium 9.7 Magnesium 1.9 Diagnostic Findings Chest X-Ray 12/14/22 16:07 XR chest 1V portable HISTORY: neuro deficit, acute stroke suspected COMPARISON: Chest 09/15/2017. FINDINGS: The lungs are clear. Cardiac silhouette is normal in size. No pleural effusions. No pneumothorax. IMPRESSION: No acute process. ACT 112: Negative or not required by law. Electronically signed by: Raheem Mercado M.D. 12/14/2022 4:[address] 12/14/22 16:[address] DOSE: 773.57 mGy.cm HISTORY: neuro deficit, acute stroke suspected TECHNIQUE: Multiaxial CT images of the head were performed without the use of intravenous contrast. Automated exposure control was utilized for this study. A dose lowering technique was utilized adhering to the principles of ALARA. Comparison: None. Findings: The paranasal sinuses and mastoid air cells are clear. The calvarium and skull base are intact. The ventricles and sulci are within normal limits. There is no mass, hematoma, midline shift, or acute infarct. Impression: No acute intracranial abnormality. ACT 112: Negative or not required by law. Electronically signed by: aRheem Mercado M.D. 12/14/2022 4:29 PM Head CTA 12/14/22 16:07 HEAD & NECK CTA HISTORY: neuro deficit, acute stroke suspected TECHNIQUE: Multiaxial CT images of the head were performed following the intravenous administration of contrast to evaluate the major cerebral vessels. Multiaxial CT images of the neck were also performed following the intravenous administration of contrast to evaluate the major cervical vessels. Maximum intensity projection images were also obtained. A dose lowering technique was utilized adhering to the principles of ALARA. COMPARISON: Head CT 12/14/2022. Head and neck MRA 06/17/2015. FINDINGS: There is no mass, hematoma, midline shift, or acute infarct. Visualized intracranial internal carotid arteries, distal vertebral arteries, and basilar artery are widely patent. There is no significant stenosis, occlusion, or aneurysm seen within the bilateral ACAs, MCAs, or ostomy nurse. Hypoplastic distal vertebral arteries, basilar arteries, and bilateral P1 segments. The bilateral ostomy nurse are primarily fed through the posterior communicating arteries. The major dural venous sinuses are patent. The aortic arch and proximal great vessels are widely patent. There is no significant stenosis, occlusion, or dissection identified within the bilateral common carotid, internal carotid, or vertebral arteries. A small area of patchy groundglass airspace opacities within the right upper lobe anteriorly. This may represent a low-grade pneumonitis. IMPRESSION: 1. No significant stenosis, occlusion, or aneurysm within the [place]. 2. No significant stenosis, occlusion, or dissection identified within the carotid or vertebral arteries. 3. A small area of patchy groundglass airspace opacities within the right upper lobe anteriorly. This may represent a low-grade pneumonitis. ACT 112: Negative or not required by law. Electronically signed by: Raheem Mercado M.D. 12/14/2022 4:35 PM Neck CTA 12/14/22 16:07 HEAD & NECK CTA HISTORY: neuro deficit, acute stroke suspected TECHNIQUE: Multiaxial CT images of the head were performed following the intravenous administration of contrast to evaluate the major cerebral vessels. Multiaxial CT images of the neck were also performed following the intravenous administration of contrast to evaluate the major cervical vessels. Maximum intensity projection images were also obtained. A dose lowering technique was utilized adhering to the principles of ALARA. COMPARISON: Head CT 12/14/2022. Head and neck MRA 06/17/2015. FINDINGS: There is no mass, hematoma, midline shift, or acute infarct. Visualized intracranial internal carotid arteries, distal vertebral arteries, and basilar artery are widely patent. There is no significant stenosis, occlusion, or aneurysm seen within the bilateral ACAs, MCAs, or ostomy nurse. Hypoplastic distal vertebral arteries, basilar arteries, and bilateral P1 segments. The bilateral ostomy nurse are primarily fed through the posterior communicating arteries. The major dural venous sinuses are patent. The aortic arch and proximal great vessels are widely patent. There is no significant stenosis, occlusion, or dissection identified within the bilateral common carotid, internal carotid, or vertebral arteries. A small area of patchy groundglass airspace opacities within the right upper lobe anteriorly. This may represent a low-grade pneumonitis. IMPRESSION: 1. No significant stenosis, occlusion, or aneurysm within the [place]. 2. No significant stenosis, occlusion, or dissection identified within the carotid or vertebral arteries. 3. A small area of patchy groundglass airspace opacities within the right upper lobe anteriorly. This may represent a low-grade pneumonitis. ACT 112: Negative or not required by law. Electronically signed by: Raheem Mercado M.D. 12/14/2022 4:35 PM Brain MRI 12/14/22 21:44 MRI OF THE BRAIN COMBO CLINICAL HISTORY: Strokelike symptoms. COMPARISON STUDY: CT of the brain dated 12/14/2022. MRI of the brain dated 06/17/2015. TECHNIQUE: MRI of the brain was performed utilizing various T1 and T2-weighted sequences in the axial, sagittal, and coronal planes. Contrast-enhanced sequences were acquired following the administration of 7.5 cc of Gadavist. FINDINGS: Brain parenchyma: There is no hemorrhage or mass effect. There is an indeterminant 4 mm focus of apparent restricted diffusion suggested involving the high right parietal cortex on image #19. No additional foci of restricted diffusion are identified. No enhancing mass lesion is identified on the postcontrast images. [place]-white matter differentiation is preserved. No extra- axial fluid collection is seen. The cerebellar tonsils are normal in configuration. Ventricles, sulci, and cisterns: Normal in configuration. Pituitary and sella: Unremarkable. Intracranial vasculature: Normal flow voids are maintained at the skull base. Orbits: The bony orbits are grossly intact. Orbital contents are normal in appearance. Sinuses and mastoids: Clear. Calvarium: Unremarkable. Cervical cord: Partially visualized cervical spinal cord is normal in morphology and signal intensity. IMPRESSION: 1. There is a 4 mm focus of questionable restricted diffusion versus artifact involving the high right parietal cortex. A punctate acute to subacute infarct is not excluded. 2. No additional foci of restricted diffusion are identified. 3. There is no hemorrhage, enhancing lesion, or mass effect. ACT 112: Negative or not required by law. Electronically signed by: Jasvir Crook M.D. 12/15/2022 8:02 AM Venous Doppler Study 12/15/22 13:06 ULTRASOUND BILATERAL LOWER EXTREMITY VENOUS CLINICAL HISTORY: Stroke. Patent foramen ovale. COMPARISON STUDY: No priors. TECHNIQUE: Real-time, grayscale, and color Doppler sonography of the deep veins of the right and left lower extremity was performed from the inguinal crease to the calf. Compression and augmentation were utilized. FINDINGS: There is no sonographic evidence of deep venous thrombosis identified in the right or left lower extremity. The common femoral, superficial femoral, and popliteal veins are patent and normally compressible bilaterally. The greater saphenous vein and the profunda femoris vein at the junction with the common femoral vein are clear in both legs. The visualized calf veins are patent bilaterally. IMPRESSION: There is no sonographic evidence of deep venous thrombosis identified in the right or left lower extremity. ACT 112: Negative or not required by law. Electronically signed by: Jasvir Crook M.D. 12/15/2022 2:12 PM Venous Doppler Study 12/15/22 13:07 BILATERAL UPPER EXTREMITY VENOUS DOPPLER ULTRASOUND CLINICAL HISTORY: Stroke,PFO COMPARISON STUDY: No previous studies for comparison. TECHNIQUE: Sonography of the venous systems of both upper extremities was performed. FINDINGS: No deep venous thrombus is identified within the upper extremities. The internal jugular, subclavian, axillary, brachial, radial, ulnar, cephalic and basilic veins are patent. IMPRESSION: No deep venous thrombus within the bilateral upper extremities. ACT 112: Negative or not required by law. Electronically signed by: Benny Tovar M.D. 12/15/2022 2:54 PM Brain MRI 12/15/22 16:40 MRI OF THE BRAIN WITHOUT CONTRAST CLINICAL HISTORY: recent abnormal MRI. Repeat MRI w only DWI/ADC COMPARISON STUDY: Head CT, CTA of the head and MRI of the brain December 14, 2022. TECHNIQUE: Utilizing a 1.5 Alivia magnet and dedicated coil, diffusion-weighted imaging was performed. No additional sequences were requested at this time. FINDINGS: There are a few tiny foci of restricted diffusion within the right frontal and parietal lobes. These measure up to 4 mm. Conspicuity has slightly increased since prior exam although this is likely technical. There is no mass effect. The largest focus is hypointense on the ADC map. No additional foci of restricted diffusion are present. There is no hemorrhage. Ventricular system is normal. Basal cisterns are patent. There are no extra axial collections. IMPRESSION: Several tiny acute infarcts within the right frontal and parietal lobes. Increase in conspicuity since prior MRI is likely technical. ACT 112: Negative or not required by law. Electronically signed by: Benny Tovar M.D. 12/16/2022 8:28 AM TERESA--Normal. No PFO.
--- NOTE | 2022-12-16 15:41 | Pharmacy Report ---
- Date of Service December 16, 2022 - Pharmacy CVA/TIA Medication Review Medications to Prevent Stroke handout has been added to the patients discharge packet. Antiplatelet(s) * Antiplatelet therapy deferred due to risk for bleeding (since starting apixaban), per Dr. Ghotra Cholesterol * High intensity statin deferred due to no evidence of atherosclerosis (cerebral, coronary, or PVD) per Dr. Ghotra DVT Prophylaxis * SCD knee Therapeutic Anticoagulation * Dr. Ghotra recommended apixaban Type 2 Diabetes * Patient does not have T2DM
[2022-12-16] MEDS ORDERED: STROKE PATIENT DISCHARGE STA (15:50)
--- NOTE | 2022-12-16 15:55 | Discharge Summary ---
Date of Service December 16, 2022 Admission HPI Per Admitting Provider Patient is a 52-year-old female with history of vertigo, GERD, obstructive sleep apnea, asthma, ocular migraine, right choroid fissure cyst, recurrent presyncope, tubular adenoma of colon, fibroid uterus and ovarian cyst presents with history of strokelike symptoms. Patient states having no prior history of stroke. At around 3:15 PM this afternoon, patient was talking to her boss while she developed sudden onset of blurred vision, difficulty to articulate, right facial droop and numbness and dizziness which lasted for about 2 to 3 minutes and resolved. She also states developing right retrobulbar pain, right earache and right-sided neck pain, nonradiating, initially 7/10 intensity, currently 1/10. She reports having sinus infection about 1 month ago and completed Z-Manjinder, Augmentin at the time. Reports intermittent cough which she attributes to her GERD. Also states having dyspnea on exertion which has been ongoing since 3 to 4 weeks. She states having syncopal episode many years ago but has been having presyncopal symptoms, intermittent right facial and left upper extremity numbness over the past 1-1/2 years. She also states having intermittent "Crossing of Eyes" and noticing zigzag lines over the past 1-2 yrs and was evaluated by her resource forester and was told to have no problems with her eyes. She had an MRI brain on 11/04/2022 for ongoing headaches and visual symptoms which showed small right choroid fissure cyst without any mass effect. She is due to be followed by her neurologist for further evaluation as outpatient. Telestroke evaluated the patient in the ED who recommended no tPA. Denies any history of chest pain, palpitations, orthopnea, PND, wheezing, hemoptysis, fever, chills, fall, head trauma, headache, focal weakness, bowel/bladder incontinence, nausea, vomiting, abdominal pain, diarrhea, dysuria, hematuria, recent change in medications. Admission Exam Per Admitting Provider Physical Exam: Vitals signs as noted above General Appearance:Moderately built and nourished, no apparent distress Head: normocephalic, Atraumatic Eyes: normal inspection, EOMI Neck: supple, Trachea midline Respiratory/Chest: Normal breath sounds, CTA, No accessory muscle use Cardiovascular: S1, S2, No murmur Abdomen/GI:Soft, Non tender, Bowel sounds present Extremities/Musculoskeletal:normal inspection, no edema Neurologic/Psych:AAOX3, grossly no focal neurological deficits Skin: normal color, warm Principal Diagnosis Acute Cerebrovascular accident likely Embolic Presyncope Right upper lobe airspace opacity Discharge Data Allergies Allergy/AdvReac Type Severity Reaction Status Date / Time pseudoephedrine Allergy Mild PASSED OUT Verified 04/01/22 08:06 chlorhexidine Allergy Verified 04/01/22 08:06 Consultations 12/14/22 17:47 ED Decision to Admit Stat 12/14/22 21:44 Consult Neurology Routine 12/15/22 08:09 Consult Cardiology Routine 12/15/22 13:10 Consult Anesthesiology Routine Procedures Performed Operation Date: 12/16/22 07:45 Actual Procedures p Echo Transesophageal - Timothy Anderson, Laboratory Results WBC 5.82 K/ul (4.8-10.8) 12/16/22 06:43 RBC 4.31 M/uL (4.20-5.40) 12/16/22 06:43 Hgb 12.8 g/dl (12.0-16.0) 12/16/22 06:43 Hct 38.4 % (37.0-47.0) 12/16/22 06:43 MCV 89.1 fL (80.0-100.0) 12/16/22 06:43 MCH 29.7 pg (25.0-34.0) 12/16/22 06:43 MCHC 33.3 g/dL (32.0-36.0) 12/16/22 06:43 RDW Std Deviation 41.9 fL (36.4-46.3) 12/16/22 06:43 RDW Coeff of [place] 12.6 % (11.5-14.5) 12/16/22 06:43 Plt Count 213 K/uL (130-400) 12/16/22 06:43 MPV 9.9 fL (9.4-12.4) 12/16/22 06:43 Immature Gran % (Auto) 0.2 % 12/16/22 06:43 Neut % (Auto) 58.9 % 12/16/22 06:43 Lymph % (Auto) 26.6 % 12/16/22 06:43 [place] % (Auto) 9.1 % 12/16/22 06:43 Eos % (Auto) 4.5 % 12/16/22 06:43 Baso % (Auto) 0.7 % 12/16/22 06:43 Neut # (Auto) 3.43 K/uL (1.40-6.50) 12/16/22 06:43 Lymph # (Auto) 1.55 K/uL (1.2-3.4) 12/16/22 06:43 [place] # (Auto) 0.53 K/uL (0.11-0.59) 12/16/22 06:43 Eos # (Auto) 0.26 K/uL (0-0.50) 12/16/22 06:43 Baso # (Auto) 0.04 K/uL (0-0.2) 12/16/22 06:43 Immature Gran # (Auto) 0.01 K/uL (0.01-0.20) 12/16/22 06:43 PT 10.3 Seconds (9.0-12.0) 12/14/22 16:30 INR 1.0 (0.9-1.1) 12/14/22 16:30 APTT 21.9 Seconds (21.0-31.0) 12/14/22 16:30 PTT Ratio 0.8 12/14/22 16:30 Sodium 139 mmol/L (136-145) 12/16/22 06:43 Potassium 4.2 mmol/L (3.5-5.1) 12/16/22 06:43 Chloride 109 mmol/L (98-107) H 12/16/22 06:43 Carbon Dioxide 22 mmol/L (21-32) 12/16/22 06:43 Anion Gap 8 (3-11) 12/16/22 06:43 BUN 16 mg/dl (6-23) 12/16/22 06:43 Creatinine 0.99 mg/dl (0.6-1.2) 12/16/22 06:43 Est Cr Clr Drug Dosing 72.2 ml/min 12/16/22 06:43 Est GFR ( Amer) 76.5 ml/min 12/16/22 06:43 Est GFR (Non-Af Amer) 66.0 ml/min 12/16/22 06:43 BUN/Creatinine Ratio 16.2 (10-20) 12/16/22 06:43 Glucose 87 mg/dl (70-99(Fasting)) 12/16/22 06:43 POC Glucose 86 mg/dl (70-99) 12/14/22 16:28 Estimat Average Glucose 117 mg/dl 12/15/22 05:24 Hemoglobin A1c 5.7 % (4.5-5.6) H 12/15/22 05:24 Calcium 9.7 mg/dl (8.5-10.1) 12/16/22 06:43 Phosphorus 3.9 mg/dl (2.5-4.9) 12/15/22 05:24 Magnesium 1.9 mg/dl (1.7-2.4) 12/16/22 06:43 Total Bilirubin 0.5 mg/dl (0.2-1.0) 12/14/22 16:30 AST 23 U/L (13-39) 12/14/22 16:30 ALT 17 U/L (7-52) 12/14/22 16:30 Alkaline Phosphatase 40 U/L (34-104) 12/14/22 16:30 Troponin I High Sens 135.2 pg/ml (0-14) H* 12/15/22 05:24 Total Protein 6.9 gm/dl (6.0-8.3) 12/14/22 16:30 Albumin 4.0 gm/dl (3.4-5.0) 12/14/22 16:30 Globulin 2.9 gm/dl (2.5-4.0) 12/14/22 16:30 Albumin/Globulin Ratio 1.4 (0.9-2) 12/14/22 16:30 Triglycerides 101 mg/dl (0-150) 12/15/22 05:24 Cholesterol 148 mg/dl (0-200) 12/15/22 05:24 LDL Cholesterol, Calc 76 mg/dl 12/15/22 05:24 VLDL Cholesterol, Calc 20 mg/dl (0-30) 12/15/22 05:24 HDL Cholesterol 52 mg/dl 12/15/22 05:24 Cholesterol/HDL Ratio 2.8 (0-5) 12/15/22 05:24 Vitamin B12 467 pg/ml (180-914) 12/15/22 05:24 Procalcitonin < 0.05 ng/ml (0-0.5) 12/14/22 16:30 HCG, Qual Negative (Negative) 12/14/22 16:30 Urine Test Negative (Negative) 12/15/22 06:16 Lyme Disease IgG Ab Negative (Negative) 12/15/22 05:24 Lyme Disease IgM Ab Negative (Negative) 12/15/22 05:24 SARS-CoV-2, RNA, NAAT NEGATIVE (NEGATIVE) 12/14/22 Unknown Impressions Chest X-Ray 12/14/22 16:07 XR chest 1V portable HISTORY: neuro deficit, acute stroke suspected COMPARISON: Chest 09/15/2017. FINDINGS: The lungs are clear. Cardiac silhouette is normal in size. No pleural effusions. No pneumothorax. IMPRESSION: No acute process. ACT 112: Negative or not required by law. Electronically signed by: Raheem Mercado M.D. 12/14/2022 4:[address] 12/14/22 16:[address] DOSE: 773.57 mGy.cm HISTORY: neuro deficit, acute stroke suspected TECHNIQUE: Multiaxial CT images of the head were performed without the use of intravenous contrast. Automated exposure control was utilized for this study. A dose lowering technique was utilized adhering to the principles of ALARA. Comparison: None. Findings: The paranasal sinuses and mastoid air cells are clear. The calvarium and skull base are intact. The ventricles and sulci are within normal limits. There is no mass, hematoma, midline shift, or acute infarct. Impression: No acute intracranial abnormality. ACT 112: Negative or not required by law. Electronically signed by: Raheem Mercado M.D. 12/14/2022 4:29 PM Head CTA 12/14/22 16:07 HEAD & NECK CTA HISTORY: neuro deficit, acute stroke suspected TECHNIQUE: Multiaxial CT images of the head were performed following the intravenous administration of contrast to evaluate the major cerebral vessels. Multiaxial CT images of the neck were also performed following the intravenous administration of contrast to evaluate the major cervical vessels. Maximum int ensity projection images were also obtained. A dose lowering technique was utilized adhering to the principles of ALARA. COMPARISON: Head CT 12/14/2022. Head and neck MRA 06/17/2015. FINDINGS: There is no mass, hematoma, midline shift, or acute infarct. Visualized intracranial internal carotid arteries, distal vertebral arteries, and basilar artery are widely patent. There is no significant stenosis, occlusion, or aneurysm seen within the bilateral ACAs, MCAs, or cardiac rehab nurse. Hypoplastic distal vertebral arteries, basilar arteries, and bilateral P1 segments. The bilateral cardiac rehab nurse are primarily fed through the posterior communicating arteries. The major dural venous sinuses are patent. The aortic arch and proximal great vessels are widely patent. There is no significant stenosis, occlusion, or dissection identified within the bilateral common carotid, internal carotid, or vertebral arteries. A small area of patchy groundglass airspace opacities within the right upper lobe anteriorly. This may represent a low-grade pneumonitis. IMPRESSION: 1. No significant stenosis, occlusion, or aneurysm within the [place]. 2. No significant stenosis, occlusion, or dissection identified within the carotid or vertebral arteries. 3. A small area of patchy groundglass airspace opacities within the right upper lobe anteriorly. This may represent a low-grade pneumonitis. ACT 112: Negative or not required by law. Electronically signed by: Raheem Mercado M.D. 12/14/2022 4:35 PM Neck CTA 12/14/22 16:07 HEAD & NECK CTA HISTORY: neuro deficit, acute stroke suspected TECHNIQUE: Multiaxial CT images of the head were performed following the intravenous administration of contrast to evaluate the major cerebral vessels. Multiaxial CT images of the neck were also performed following the intravenous administration of contrast to evaluate the major cervical vessels. Maximum intensity projection images were also obtained. A dose lowering technique was utilized adhering to the principles of ALARA. COMPARISON: Head CT 12/14/2022. Head and neck MRA 06/17/2015. FINDINGS: There is no mass, hematoma, midline shift, or acute infarct. Visualized intracranial internal carotid arteries, distal vertebral arteries, and basilar artery are widely patent. There is no significant stenosis, occlusion, or aneurysm seen within the bilateral ACAs, MCAs, or cardiac rehab nurse. Hypoplastic distal vertebral arteries, basilar arteries, and bilateral P1 segments. The bilateral cardiac rehab nurse are primarily fed through the posterior communicating arteries. The major dural venous sinuses are patent. The aortic arch and proximal great vessels are widely patent. There is no significant stenosis, occlusion, or dissection identified within the bilateral common carotid, internal carotid, or vertebral arteries. A small area of patchy groundglass airspace opacities within the right upper lobe anteriorly. This may represent a low-grade pneumonitis. IMPRESSION: 1. No significant stenosis, occlusion, or aneurysm within the [place]. 2. No significant stenosis, occlusion, or dissection identified within the carotid or vertebral arteries. 3. A small area of patchy groundglass airspace opacities within the right upper lobe anteriorly. This may represent a low-grade pneumonitis. ACT 112: Negative or not required by law. Electronically signed by: Raheem Mercado M.D. 12/14/2022 4:35 PM Venous Doppler Study 12/15/22 13:07 BILATERAL UPPER EXTREMITY VENOUS DOPPLER ULTRASOUND CLINICAL HISTORY: Stroke,PFO COMPARISON STUDY: No previous studies for comparison. TECHNIQUE: Sonography of the venous systems of both upper extremities was performed. FINDINGS: No deep venous thrombus is identified within the upper extremities. The internal jugular, subclavian, axillary, brachial, radial, ulnar, cephalic and basilic veins are patent. IMPRESSION: No deep venous thrombus within the bilateral upper extremities. ACT 112: Negative or not required by law. Electronically signed by: Benny Tovar M.D. 12/15/2022 2:54 PM Brain MRI 12/15/22 16:40 MRI OF THE BRAIN WITHOUT CONTRAST CLINICAL HISTORY: recent abnormal MRI. Repeat MRI w only DWI/ADC COMPARISON STUDY: Head CT, CTA of the head and MRI of the brain December 14, 2022. TECHNIQUE: Utilizing a 1.5 Alivia magnet and dedicated coil, diffusion-weighted imaging was performed. No additional sequences were requested at this time. FINDINGS: There are a few tiny foci of restricted diffusion within the right f rontal and parietal lobes. These measure up to 4 mm. Conspicuity has slightly increased since prior exam although this is likely technical. There is no mass effect. The largest focus is hypointense on the ADC map. No additional foci of restricted diffusion are present. There is no hemorrhage. Ventricular system is normal. Basal cisterns are patent. There are no extra axial collections. IMPRESSION: Several tiny acute infarcts within the right frontal and parietal lobes. Increase in conspicuity since prior MRI is likely technical. ACT 112: Negative or not required by law. Electronically signed by: Benny Tovar M.D. 12/16/2022 8:28 AM Ordered Studies 12/14/22 16:07 CT angio head w con Stat CT angio neck with con Stat CT head/brain wo con Stat 12/14/22 21:44 MR brain wo/w con Routine 12/15/22 13:06 US venous duplex leg [US venous doppler LE BI] Routine 12/15/22 13:07 US venous doppler UE BI Routine 12/15/22 16:40 MRI Brain [MR brain wo con] Urgent Hospital Course (1) Stroke-like symptoms: Acute CVA-POA Likely Embolic Not a candidate for tPA--Not Indicated --CT head:No acute intracranial abnormality. --CTA Head/Neck: No significant stenosis, occlusion, or aneurysm within the [place]. No significant stenosis, occlusion, or dissection identified within the carotid or vertebral arteries. A small area of patchy groundglass airspace opacities within the right upper lobe anteriorly. This may represent a low-grade pneumonitis. --MRI Brain:There is a 4 mm focus of questionable restricted diffusion versus artifact involving the high right parietal cortex. A punctate acute to subacute infarct is not excluded. No additional foci of restricted diffusion are identified. There is no hemorrhage, enhancing lesion, or mass effect. --ECHO: Normal left ventricular wall thickness. No regional wall motion abnormality. Left ventricle systolic function is normal. EF 55 to 60%. Left ventricular diastolic function is normal. No ASD. Cannot rule out small PFO. Possible interatrial shunt present. --Venous Doppler:There is no sonographic evidence of deep venous thrombosis identified in the right or left lower extremity. -- Repeat MRI:Several tiny acute infarcts within the right frontal and parietal lobes. Increase in conspicuity since prior MRI is likely technical. -TERESA:The left ventricular ejection fraction is normal. The valvular structure and function is normal. The left atrial appendage is well visualized with no evidence of thrombus. The interatrial septum was well visualized, and was intact as assessed by 2D, color-flow Doppler, and with the administration of agitated saline contrast with manual abdominal pressure applied. -- Hypercoagulable work-up pending --HbA1c 5.7 --Total cholesterol 148, LDL 76, HDL 52 --Negative Lyme screen --Vitamin B12 467 --EEG :This EEG, recorded in wakefulness only, is normal. There is no electrographic seizures or epileptogenic discharge. Clinical correlation is suggested. Speech and swallow eval, PT/OT eval Started on Eliquis and low dose Lipitor as Acute CVA likely Embolic and Lipid Panel is within normal range as recommended by neurology. Neuro checks Appreciate Neurology Input OCPs discontinued Needs 14-day Zio patch monitor arranged as outpatient Needs follow-up with neurology, cardiology upon discharge Elevated troponin Rule out ACS Denies chest pain Reports dyspnea on exertion for 3 to 4 weeks Initial troponin: 164>146>135 EKG shows: Poor quality EKG. Normal sinus rhythm. Low voltage QRS. Left anterior fascicular block. Nonspecific ST-T wave changes. QTc 455. CXR: No acute process. ECHO as above Appreciate cardiology Input Presyncope H/O vertigo, recurrent presyncope Gentle IV fluids Meclizine as needed Advised to follow up with ENT as outpatient Right upper lobe airspace opacity Incidental finding on imaging Denies any change in cough Attributes chronic intermittent cough due to GERD Procalcitonin < 0.05 Currently asymptomatic, no indication for antibiotics Will need repeat imaging as outpatient to monitor for resolution Mild hyponatremia Monitor sodium levels Received gentle IV fluids Resolved Vitamin B12 deficiency On vitamin B12 injections monthly Normal vitamin B12 levels chronic conditions: GERD--not on any meds obstructive sleep apnea--does not use CPAP Asthma--albuterol as needed Ocular migraine--Not on meds Right choroid fissure cyst Tubular adenoma of colon-as per records Fibroid uterus and ovarian cyst--on OCPs, follows with [facility] Discontinued OCPs as increased risk with possible stroke. Advised to follow-up with [facility] as outpatient for alternative management DVT Px: SCDs for now Code Status Full Code Disposition Home Total Time Total Time Spent Total Time Spent (In Minutes): 55 minutes Discharge Plan Discharge Items Patient Disposition: Home - Self-Care Reason For Visit: STROKE LIKE SYMPTOMS Discharge Diagnosis: Acute Cerebrovascular accident likely Embolic Presyncope Right upper lobe airspace opacity Activity: Per Instructions section Exercise/Sports: Gradually increase as tolerated Non-emergency contact: Primary Care Provider and Neurologist Call non-emergency contact if: you have any medication questions, your symptoms worsen, your pain is concerning for you and you have a fever Follow-up/Referrals: Michael Ferguson MD [Physician] - (Dr Ferguson's office will call you with an appointment.) Alfredo Deng PA-C [Primary Care Provider] - (Date & Time 12/22/2022 2:20 PM Provider Berenice Schreiber MD Department General Internal Medicine [facility] ) Diet: Heart Healthy [facility] Attending Provider Instructions: Follow-up with your primary care physician Alfredo Deng PA-C on 12/22/2022 2:20 PM as scheduled Follow-up with your neurologist Dr. Ferguson in 4 weeks--office will call you with appointment Follow-up with your wood turner next week for arrangement of Regional Climate Change Analyst--office will call you with appointment Follow-up with your [facility] for management of fibroid uterus and ovarian cyst as advised --Start taking Eliquis 5 mg twice a day and Lipitor 10 mg daily as recommended by your neurologist. -- You were incidentally found to have Right upper lung airspace opacity. Recommend to get repeat chest x-ray in 3-4 weeks to monitor for resolution. -- Stop taking oral contraceptive pills as advised --Your Blood work (hypercoagulable work-up) to identify risk factors for clotting is pending at the time of discharge. Follow-up with your physician for results. Do not take group of medications belonging to NSAIDs group -can increase your risk for bleeding. List Of these medications includes but not limited to: Diclofenac Ibuprofen, Motrin, Advil Toradol,ketorolac Naproxen, Aleve, Naprosyn You can take Tylenol as needed for pain or fever When buying [id number] pain medications please consult with pharmacy if you are not sure regarding ingredients, as a lot of the pain medications have combination of NSAIDs and Tylenol. Seek immediate medical attention if your symptoms reoccur or worsen Please take all medications as instructed on discharge list below. Please call if you have any questions or problems. You can reach a [facility] hospitalist on duty at [facility] 24 hours a day by calling [phone] Risk Factors for Stroke: You can reduce your chances of stroke by working with your medical provider to adopt a healthy lifestyle. Some specific ways to lower your chance of stroke are: * If you are a smoker, now is the time to stop smoking cigarettes * If you are diabetic, improve the control of your blood sugars * Avoid excessive amounts of alcohol * Control high blood pressure * Lose weight if you are overweight * Be sure to lead an active lifestyle * Eat a healthy diet low in salt, cholesterol and fat You should know about other risk factors for stroke that you are unable to control. These include: * Age 55 years or older * Male gender * Certain racial groups: , or / * Family History of Stroke, Mini stroke or Heart Attack * Sickle Cell Disease Follow Up: It is important for you to keep your follow up appointments with your medical provider. Who to Call and When: Medical Emergencies: Call 911 immediately if you experience any of the following warning signs and symptoms of Stroke: * Sudden numbness or weakness of the face, arm or leg, especially on one side of the body * Sudden confusion, trouble speaking or understanding * Sudden trouble seeing in one or both eyes * Sudden trouble walking, dizziness, loss of balance or coordination * Sudden severe headache with no cause Do not delay calling 911 if you experience any warning signs or symptoms of a stroke. Delay in seeking medical attention may affect what treatments can be given to y ou. . Pending Studies at Discharge: Yes Studies:: Hypercoagulable Work up Stand-Alone Forms: [facility] [employer], Work/School Release, Smoking Cessation, Medications to Prevent Stroke Medications and DC Order Prescriptions: New atorvastatin 10 mg Tablet 10 mg PO QAM Qty: 30 1RF Eliquis 5 mg Tablet 5 mg PO BID Qty: 60 1RF Continued (DME) [facility] Spacer See Rx Instructions .ROUTE .MEDSUPPLY Qty: 1 1RF Rx Instructions: please use as directed albuterol sulfate [ProAir HFA] 90 mcg/actuation HFA aerosol inhaler 2 puff INH Q4 PRN (Reason: shortness of breath or wheezing) cyanocobalamin (vitamin B-12) [Cyanacobalamin] 1,000 mcg/mL Solution 1,000 mcg IM Q28D Discontinued norethindrone ac-eth estradiol [12/02 (21)] 1-20 mg-mcg tablet 1 tab PO DAILY Discharge Orders: Discharge Order (Routine); Ordered 12/16/22 Ordered By: Brett Ramey Admission Data Admit Date/Time: 12/15/22 15:10 Attending Provider: Brett Ramey Admit Provider: Brett Ramey Primary Care Provider: Alfredo Deng Other Providers: Farhana Patel ; Philip Wilkerson ; Michael Ferguson ; Janna Short ; Tho Thomas ; Janna Espinal ; Demar Ghotra ; Benny Baeza ; Madison Meier ; Tho Horowitz ; Ken Potter ; Ken Bundy ; Timothy Anderson ; Yong Gagnon ; Bobby Choi ; Jan Do. ; Anatoly Singh ; Shira Bryant ; Janna Michelle ; Paula Johnson ; Larry Huddleston ; João Goncalves
[2022-12-16] MEDS ORDERED: APIXABAN 5 MG TABLET PO SCH (21:00)
[2022-12-17] MEDS ORDERED: ATORVASTATIN 10 MG TAB PO SCH (09:00)
[2022-12-22 07:07] LABS: Anti Cardiolipin Ab IgG <2.0 GPL-U/mL; Anti Cardiolipin Ab IgM 5.8 MPL-U/mL; Anti-Thrombin III Activity 93 % normal (80-135); B2 Glycoprotein IgG <2.0 U/mL (<20.0); B2 Glycoprotein IgM 8.6 U/mL (<20.0); PTT LA Screen 28 sec (<=40); Protein S Functional(Activity) 83 % normal (60-140)
[2022-12-23 14:12] LABS: Factor 5 Mutation NEGATIVE
== END 2022-12-16 17:12 | disposition home or self-care (01) | DRG 65 ==
LOC: ED 15:54 → 2E 15:54